=== PATIENT | female | born 1985 | race Caucasian/White ===

== ENCOUNTER 2018-06-02 18:35 | Emergency (ER) | payer MEDICAID, SELFPAY ==
[2018-06-02 18:47] VITALS: BP 123/76; PULSE 92; RESP 18; TEMP 36.8; O2SAT 99
--- NOTE | 2018-06-02 19:03 | W.ED.GENAD ---
Discharge Plan Disposition Patient Disposition: HOME Condition: Improving Discharge Details Chief Complaint: RespSymp Clinical Impression: Bronchitis Primary Care Provider: Antonella Pepe ED Provider: Cornelio Deluna Home Meds and New Rx's Prescriptions: New benzonatate [Tessalon Perles] 100 mg capsule 100 mg PO TID PRN (Reason: cough) Qty: 14 RF: 0 azithromycin 250 mg tablet 250 mg PO DAILY 4 Days Qty: 4 RF: 0 Discharge Instructions Instructions: Acute Bronchitis (ED) Additional Instructions: May use Tessalon, as prescribed as needed for cough. Please take azithromycin as prescribed. Follow-up with regular doctor if not improving in 1 week's time. Return to the emergency department for any acute concern Medical Decision Making 32-year-old female presents with 3 weeks of persistent cough and congestion. She has had no fever, she is been tolerating liquids solids by mouth and is an otherwise healthy woman. She is afebrile and well-appearing. She does have persistent paroxysms of cough during the exam. Must consider an atypical microorganism and I will treat her with a course of azithromycin. She will be given Tessalon for improved antitussive at home. She understands return and follow-up precautions HPI General Mode of arrival: ambulatory. Date/Time Provider Initiated Documentation: 06/02/18 18:53. Limitations to Documentation: no limitations. Information obtained by: patient. History of Present Illness 32 year old F presents to the emergency department with the chief complaint of 3 weeks of persistent cough, congestion, described as mild, and is localized to the chest. Patient reports no radiation. Patient started experiencing this week(s) and it has been intermittent. No relieving factors improve symptom(s), No exacerbating factors reported . Patient notes no other symptoms.; denies nausea/vomiting, rash and shortness of breath. Patient did receive the following treatments prior to arrival, none Related Data Home Medications Medication Instructions Recorded Confirmed azithromycin 250 mg PO DAILY 4 Days #4 tab 06/02/18 benzonatate [Tessalon Perles] 100 mg PO TID PRN #14 cap 06/02/18 Previous Rx's Medication Instructions Recorded azithromycin 250 mg PO DAILY 4 Days #4 tab 06/02/18 benzonatate [Tessalon Perles] 100 mg PO TID PRN #14 cap 06/02/18 Allergies Allergy/AdvReac Type Severity Reaction Status Date / Time No Known Allergies Allergy Unverified 06/02/18 18:49 General Stated Complaint: RespSymp NILESH: 3 Review of Systems Review of Systems 6 systems reviewed and otherwise negative [facility] Medical History Anxiety Surgical History section Ligation of fallopian tube Family History Mother No problems noted. Father No problems noted. Sister No problems noted. Brother No problems noted. Grandfather Neoplasm Great Grandfather Neoplasm Grandmother Diabetes Social History Smoking/Tobacco Use Status: Never Exam Narrative Exam Narrative: GEN: awake, alert, oriented 3. Pleasant, well groomed, interactive. HEAD: Normocephalic, atraumatic ENT: Mucous membranes moist, oropharynx unremarkable, External ear exam unremarkable EYES: PERRL, EOMI NECK: Full ROM, no HYUN, no menigismus CHEST/RESP: Nontender, clear to auscultation bilateral, no wheeze/rhonchi/rales. Paroxysms of cough CARDIOVASCULAR: RRR, no murmur, rub kiya. 2+ Rad pulse bilateral ABDOMEN: Soft, nontender, no mass. +Bowel sounds EXT: Full ROM, no edema, no rash Neuro: Grossly normal neurologic exam, conversant, interactive. Psych: Speech fluent, thoughts congruent, affect normal Course Vital Signs Temperature 36.8 C 06/02/18 18:47 Pulse 92 H 06/02/18 18:47 Respiratory Rate 18 06/02/18 18:47 Blood Pressure 123/76 06/02/18 18:47 Pulse Oximetry 99 06/02/18 18:47 Temperature 36.8 C 06/02/18 18:47 Temperature Source Temporal Artery Scan 06/02/18 18:47 Pulse 92 H 06/02/18 18:47 Respiratory Rate 18 06/02/18 18:47 Respiratory Effort 06/02/18 18:50 Blood Pressure 123/76 06/02/18 18:47 Pulse Oximetry 99 06/02/18 18:47 Oxygen Delivery Method Room Air 06/02/18 18:47 Oxygen Flow Rate 0 06/02/18 18:47 Pain Level 0 06/02/18 18:47
--- NOTE | 2018-06-02 19:06 | ED.GENADUL_ITS ---
Discharge Plan Disposition Patient Disposition: HOME Condition: Improving Discharge Details Chief Complaint: RespSymp Clinical Impression: Bronchitis Primary Care Provider: Antonella Pepe ED Provider: Cornelio Deluna Home Meds and New Rx's Prescriptions: New benzonatate [Tessalon Perles] 100 mg capsule 100 mg PO TID PRN (Reason: cough) Qty: 14 RF: 0 azithromycin 250 mg tablet 250 mg PO DAILY 4 Days Qty: 4 RF: 0 Discharge Instructions Instructions: Acute Bronchitis (ED) Additional Instructions: May use Tessalon, as prescribed as needed for cough. Please take azithromycin as prescribed. Follow-up with regular doctor if not improving in 1 week's time. Return to the emergency department for any acute concern Medical Decision Making 32-year-old female presents with 3 weeks of persistent cough and congestion. She has had no fever, she is been tolerating liquids solids by mouth and is an otherwise healthy woman. She is afebrile and well-appearing. She does have persistent paroxysms of cough during the exam. Must consider an atypical microorganism and I will treat her with a course of azithromycin. She will be given Tessalon for improved antitussive at home. She understands return and follow-up precautions HPI General Mode of arrival: ambulatory . Date/Time Provider Initiated Documentation: 06/02/18 18:53 . Limitations to Documentation: no limitations . Information obtained by: patient . History of Present Illness 32 year old F presents to the emergency department with the chief complaint of 3 weeks of persistent cough, congestion, described as mild, and is localized to the chest. Patient reports no radiation. Patient started experiencing this week(s) and it has been intermittent. No relieving factors improve symptom(s), No exacerbating factors reported . Patient notes no other symptoms.; denies nausea/vomiting, rash and shortness of breath. Patient did receive the following treatments prior to arrival, none Related Data Home Medications Medication Instructions Recorded Confirmed azithromycin 250 mg PO DAILY 4 Days #4 tab 06/02/18 benzonatate [Tessalon Perles] 100 mg PO TID PRN #14 cap 06/02/18 Previous Rx's Medication Instructions Recorded azithromycin 250 mg PO DAILY 4 Days #4 tab 06/02/18 benzonatate [Tessalon Perles] 100 mg PO TID PRN #14 cap 06/02/18 Allergies Allergy/AdvReac Type Severity Reaction Status Date / Time No Known Allergies Allergy Unverified 06/02/18 18:49 General Stated Complaint: RespSymp NILESH: 3 Review of Systems Review of Systems 6 systems reviewed and otherwise negative [facility] Medical History Anxiety Surgical History section Ligation of fallopian tube Family History Mother No problems noted. Father No problems noted. Sister No problems noted. Brother No problems noted. Grandfather Neoplasm Great Grandfather Neoplasm Grandmother Diabetes Social History Smoking/Tobacco Use Status: Never Exam Narrative Exam Narrative: GEN: awake, alert, oriented 3. Pleasant, well groomed, interactive. HEAD: Normocephalic, atraumatic ENT: Mucous membranes moist, oropharynx unremarkable, External ear exam unremarkable EYES: PERRL, EOMI NECK: Full ROM, no HYUN, no menigismus CHEST/RESP: Nontender, clear to auscultation bilateral, no wheeze/rhonchi/rales. Paroxysms of cough CARDIOVASCULAR: RRR, no murmur, rub kiya. 2+ Rad pulse bilateral ABDOMEN: Soft, nontender, no mass. +Bowel sounds EXT: Full ROM, no edema, no rash Neuro: Grossly normal neurologic exam, conversant, interactive. Psych: Speech fluent, thoughts congruent, affect normal Course Vital Signs Temperature 36.8 C 06/02/18 18:47 Pulse 92 H 06/02/18 18:47 Respiratory Rate 18 06/02/18 18:47 Blood Pressure 123/76 06/02/18 18:47 Pulse Oximetry 99 06/02/18 18:47 Temperature 36.8 C 06/02/18 18:47 Temperature Source Temporal Artery Scan 06/02/18 18:47 Pulse 92 H 06/02/18 18:47 Respiratory Rate 18 06/02/18 18:47 Respiratory Effort 06/02/18 18:50 Blood Pressure 123/76 06/02/18 18:47 Pulse Oximetry 99 06/02/18 18:47 Oxygen Delivery Method Room Air 06/02/18 18:47 Oxygen Flow Rate 0 06/02/18 18:47 Pain Level 0 06/02/18 18:47
[2018-06-02] MEDS: Azithromycin 250 MG TAB 500 MG PO (19:19)
[2018-06-02] MEDS: Benzonatate 100 MG CAP 300 MG PO (19:19)
== END 2018-06-02 19:15 | disposition home or self-care (01) ==
PROVIDERS: Emergency Provider Emergency Medicine; PCP Nurse Practitioner Family
DX: J20.9 Acute bronchitis, unspecified (principal)
CPT/HCPCS: 99283

== ENCOUNTER 2018-07-02 09:35 | Outpatient (REF) | payer MEDICAID, SELFPAY ==
--- NOTE | 2018-07-02 08:45 | PAPFT_PTH ---
PATIENT: Suresh Leon LOC: [facility] U#:[id number] AGE/SX: 32/F ROOM: RE07/02/[address]: Antonella Pepe APRN : 1985 BED: DIS: 07/02/2018 SPEC #: [id number] RECD: 07/02/18 12:38 STATUS: [place] #: [id number] CARLOS: 07/02/18 08:[address]: Antonella Pepe DEPT: [facility] Cytology RECD BY: Irene Mar Tissues: 1 - CX/ENDOCX FOR PAP SMEARS Procedures: PAP THIN PREP/UVM Screening HPV DNA PROBE Comments: [id number]
== END 2018-07-02 09:55 ==
LOC: LBN 09:35
PROVIDERS: PCP Nurse Practitioner Family; Visit Provider Nurse Practitioner Family
DX: Z12.4 Encounter for screening for malignant neoplasm of cervix (principal); Z11.51 Encounter for screening for human papillomavirus (HPV)
CPT/HCPCS: 88142; 87624

== ENCOUNTER 2018-07-30 07:50 | Outpatient (CLI) | payer MEDICAID, SELFPAY ==
[2018-07-30 09:29] LABS: Cholesterol 173 mg/dL (50-200); Glucose 90 mg/dL (70-100); HDL Cholesterol 62 mg/dL (40-60); LDL CHOLESTEROL 91 mg/dL (<100); TSH (W/Ref FT4) 1.15 uIU/mL (0.358-3.74); Triglyceride 96 mg/dL (30-150)
== END 2018-07-30 08:10 ==
PROVIDERS: PCP Nurse Practitioner Family; Visit Provider Nurse Practitioner Family
DX: N92.0 Excessive and frequent menstruation with regular cycle (principal); Z13.220 Encounter for screening for lipoid disorders; Z13.1 Encounter for screening for diabetes mellitus
CPT/HCPCS: 36415; 80061; 82947; 83721; 87389; 84443

== ENCOUNTER 2020-05-05 04:14 | Outpatient (CLI) | payer MEDICAID, SELFPAY ==
--- NOTE | 2020-05-05 06:45 | DI.RAD_ITS ---
EXAM: XR WRIST LT COMPLETE CLINICAL HISTORY: evaluate possible cyst or bony abnl,LT WRIST PAIN,M25.532,[id number].PERSONAL. TECHNIQUE: 2D digital imaging was performed. COMPARISON: No exams were available for comparison FINDINGS: BONES: No acute fracture is present. No bony destructive lesion is seen. A small subchondral cyst is noted in the trapezium. JOINTS: The carpal bones are normally aligned. There are no significant degenerative changes. SOFT TISSUE: Normal. No mass is visible. There is no soft tissue calcification. IMPRESSION: Unremarkable radiographs of the left wrist. DATA REPOSITORY: RADIATION DOSE DELIVERED:
== END 2020-05-05 04:34 ==
PROVIDERS: PCP Student in an Organized Health Care Education/Training Program; Visit Provider Student in an Organized Health Care Education/Training Program
DX: M25.532 Pain in left wrist (principal); Z87.39 Personal history of other diseases of the musculoskeletal system and connective tissue
CPT/HCPCS: 73110

== ENCOUNTER 2020-06-13 16:03 | Emergency (ER) | payer MEDICAID, SELFPAY ==
[2020-06-13 16:06] VITALS: BP 130/73; PULSE 92; RESP 18; TEMP 37.2; O2SAT 99
--- NOTE | 2020-06-13 16:50 | ED.GENADUL_ITS ---
Discharge Plan Disposition Patient Disposition: HOME Condition: Serious Discharge Details Clinical Impression: Dizziness, Spasm Primary Care Provider: Delmi Barr ED Provider: Ming Pruett Home Meds and New Rx's Prescriptions: Continued fluticasone propionate 50 mcg/actuation spray,suspension 2 spray FAUSTO DAILY Qty: 16 RF: 0 CBD 25 mg capsule See Rx Instructions .ROUTE .QD RF: 0 norgestimate-ethinyl estradiol [Stacey] 0.25-35 mg-mcg Tablet 1 tab PO DAILY RF: 0 Discharge Instructions Instructions: Dizziness (ED) Additional Instructions: Please monitor for symptoms closely. Avoid activities that reproduce symptoms - no pressure on your back or chiropractic manipulation of the back. Please contact your primary care physician to arrange follow-up. Be sure to discuss your symptoms with orthopedics. Return to the ER for any worsening or new concerning symptoms. Referrals: Delmi Barr DO [Primary Care Provider] - Lorenzo Rao MD [ [facility]] - Medical Decision Making 34-year-old female here with sudden onset of lightheadedness while she was lying on the ground and left arm tremor with tingling sensation after young daughter was attempting to crack her back while walking on it. Episode was brief and now resolved. Patient is hemodynamically stable. Patient is neurologically intact. Symptoms completely resolved after minutes. Patient was observed in the emergency department for period of time during which she performed jumping jacks and had regular use of the left arm. Suspect nerve root irritation. Patient does have a history of carpal tunnel peripheral neuropathy and does have a local area of numbness chronically left thoracic paraspinal. I recommended she monitor for recurrent symptoms, refrain from manipulation of the spine, and should discuss this episode with her treating orthopedic surgeon. She was encouraged to return immediately should she have any worsening or new concerning symptoms. HPI General Mode of arrival: EMS . Date/Time Provider Initiated Documentation: 06/13/20 16:24 . Limitations to Documentation: no limitations . Information obtained by: patient . HPI Narrative: 34-year-old female with carpal tunnel syndrome left upper extremity, otherwise healthy, presents with chief complaint of left arm tremor. Patient notes that she lied down on the floor and felt somewhat dizzy, presyncopal, and then to her 5-year-old child was walking on her back and she immediately experienced a tingling discomfort in her left arm, she sat up and experienced shaking of the arm she attempted to reach for her phone. Symptoms were severe with no modifiers. Symptoms resolved spontaneously after minutes. Patient denies associated pressure on her neck, headache or neck discomfort. She has no sustained symptoms at this time. No tingling or numbness. No weakness. No chest pain or shortness of breath. Patient does note that she chronically has an area left paraspinal mid thoracic area that is numb. No change in this area of numbness. Related Data Home Medications Medication Instructions Recorded Confirmed fluticasone propionate 50 2 spray FAUSTO DAILY #16 gm 07/28/19 06/13/20 mcg/actuation nasal spray,suspension CBD See Rx Instructions .ROUTE .QD 03/17/20 06/13/20 norgestimate-ethinyl estradiol 1 tab PO DAILY 06/13/20 06/13/20 [Stacey] Previous Rx's Medication Instructions Recorded fluticasone propionate 50 2 spray FAUSTO DAILY #16 gm 07/28/19 mcg/actuation nasal spray,suspension Allergies Allergy/AdvReac Type Severity Reaction Status Date / Time No Known Allergies Allergy Verified 06/13/20 16:15 General Stated Complaint: GenMedical NILESH: 3 Review of Systems All systems reviewed & are unremarkable except as noted in HPI and below Constitutional Constitutional: Denies fever(s) ENT Ears, Nose, Mouth, and Throat: Denies neck pain Cardiovascular Cardiovascular: Denies chest pain, Denies syncope, Denies rapid heart rate, Reports lightheadedness (See HPI), Denies palpitations, Denies dyspnea and Denies slow heart rate Respiratory Respiratory: Denies dyspnea Gastrointestinal Gastrointestinal: Denies abdominal pain, Denies nausea and Denies vomiting Musculoskeletal Musculoskeletal: Denies neck pain Integumentary/Breasts Skin/Breast: Denies rash Neurologic Neurologic: Reports as per HPI and Denies syncope Endocrine Endocrine: Denies palpitations [facility] Medical History Abnormal menses Acute notable nipple pain associated pre-menses in March 2020; Spotting in between menses Mar/Apr making for near 4 week period. Anxiety Family history of diabetes mellitus (DM) Fatigue History of ganglion cyst Left wrist, @ radius per pt report. Resolved with use of splint, years ago. HSV (herpes simplex virus) infection Left shoulder pain [facility] Referral: Appreciate evaluation of left shoulder pain .. x 1 month, getting worse rather than better. Very specific motion brings on severe pain; otherwise, almost WNL. Possible tear, tendonitis? Bursa invol vement? Appreciate ID and recomm for Ortho, PRN. Thank you. Left wrist pain Presume ganglion cyst returned (had responded to wrist splint years ago). 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 Ligation of fallopian tube Family History Mother No problems noted. Father No problems noted. Sister No problems noted. Brother No problems noted. Grandfather Neoplasm Colon CA Great Grandfather Neoplasm Colon CA Grandmother Diabetes Social History Smoking/Tobacco Use Status: Never Smoking risk assessment performed?: Yes Alcohol Intake: current Alcohol Intake frequency: holidays/special occasions only Drug use: Never Substance use type: does not use Household members: spouse, children and other Details: Ralph Michaud 6yo, Bria 4yo. 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 Pets and animals: Yes Pets and animals: dog(s) Sexually active: Yes Current gender identity: female What type of physical activity do you participate in: regular exercise Duration: 45-60 minutes/day Frequency: 5-6 times per week Seatbelt use: always Helmet use: Yes Drive intox or ride w/intox river driver: No Do you feel safe at home: Yes Do you feel safe in your relationship?: Yes Exam Const General: cooperative and no acute distress HENMT Head: atraumatic Mouth: moist mucous membranes Eyes Conjunctivae: normal conjunctivae EOM: EOM intact bilaterally Neck Neck: trachea midline and supple Resp Auscultation: clear to auscultation bilaterally, no rales, no rhonchi and no wheezes Cardio Jugular venous pressure: no JVD Rate: regular rate and not tachycardic Rhythm: regular rhythm GI Palpation: soft, not firm, no guarding, no masses, not rigid and nontender Back/Spine/Pelvis Back: No erythema and No warmth Cervical Spine: No cervical spinal tenderness Thoracic/Lumbar Spine: No thoracic spinal tenderness and No lumbar spinal tend erness Other: Left paraspinal thoracic focal small localized area of paresthesia Skin General skin exam: no rashes or lesions noted Neuro General: patient alert, patient awake, patient oriented x3 and tone normal Cranial Nerves: CN's II-XI intact bilaterally Cognition: normal cognition Speech: speech normal Gait: normal gait Motor: strength 5/5 throughout Sensory Exam: no sensory deficits noted Coordination: [id number] test normal Extrem General: no calf tenderness and no edema Psych Appearance: grossly normal Mental Status: mental status grossly normal Speech and Movement: speech and movement normal Course Vital Signs Vital signs: Vital Signs Temperature 37.2 C 06/13/20 16:06 Pulse 92 H 06/13/20 16:06 Respiratory Rate 18 06/13/20 16:06 Blood Pressure 130/73 06/13/20 16:06 Pulse Oximetry 99 06/13/20 16:06 Temperature 37.2 C 06/13/20 16:06 Temperature Source Temporal Artery Scan 06/13/20 16:06 Pulse 92 H 06/13/20 16:06 Respiratory Rate 18 06/13/20 16:06 Respiratory Effort Non-Labored 06/13/20 16:30 Respiratory Depth Normal 06/13/20 16:30 Blood Pressure 130/73 06/13/20 16:06 Blood Pressure Position Sitting 06/13/20 16:06 Pulse Oximetry 99 06/13/20 16:06 Oxygen Delivery Method Room Air 06/13/20 16:06 Oxygen Flow Rate 0 06/13/20 16:06 Pain Level 0 06/13/20 16:06
== END 2020-06-13 17:05 | disposition home or self-care (01) ==
PROVIDERS: Emergency Provider Student in an Organized Health Care Education/Training Program; PCP Student in an Organized Health Care Education/Training Program
DX: R25.1 Tremor, unspecified (principal); M62.838 Other muscle spasm; R42 Dizziness and giddiness; X50.9XXA Other and unspecified overexertion or strenuous movements or postures, initial encounter
CPT/HCPCS: 99283

== ENCOUNTER 2020-06-22 03:39 | Outpatient (CLI) | payer MEDICAID, SELFPAY ==
--- NOTE | 2020-06-22 07:00 | DI.MRI_ITS ---
EXAM: MR UPPER JOINT LT WO CLINICAL HISTORY: LT WRIST PAIN, M25.532. TECHNIQUE: Multiplanar multisequence MRI was performed. COMPARISON: Priors available for comparison. FINDINGS: BONES: There is no fracture or contusion pattern. Mild cystic changes are seen in the lunate. No joe dence of lunate malacia. JOINTS: The radiocarpal joint is unremarkable. The carpal joints are unremarkable. TENDONS: Flexors: Unremarkable. Extensors: There is mild hyperintense signal seen in the extensor carpi ulnaris tendon at the level o f the ulnar styloid process with mild surrounding edema. Extensor tendons are otherwise unremarkable . MUSCLES: Unremarkable. MEDIAN NERVE: Unremarkable on this noncontrast examination. ULNAR NERVE: Unremarkable on this noncontrast examination. SOFT TISSUES: There is a 0.7 cc by 0.5 AP by 0.8 transverse cm cyst arising from the pisotriquetral j oint. There is a similar cyst arising from the articulation of the scaphoid and the trapezium measur ing 0.7 transverse by 0.8 cc by 0.6 AP cm. LIGAMENTS: Unremarkable. TRIANGULAR FIBROCARTILAGE: Unremarkable. OTHER: IMPRESSION: 1. Ganglion cysts arising from both the pisotriquetral joint in the articulation between the scaphoid and the trapezium. 2. Mild hyperintense signal seen in the extensor carpi ulnaris tendon with surrounding edema suggesti ng tendinosis. No evidence of a tendon tear. 3. Mild cystic change seen in the lunate. DATA REPOSITORY:
== END 2020-06-22 03:59 ==
PROVIDERS: PCP Student in an Organized Health Care Education/Training Program; Visit Provider Student in an Organized Health Care Education/Training Program
DX: M67.432 Ganglion, left wrist (principal); M25.532 Pain in left wrist
CPT/HCPCS: 73221

== ENCOUNTER 2020-08-14 03:08 | Outpatient (CLI) | payer MEDICAID, SELFPAY ==
[2020-08-14 09:37] LABS: ALT 22 U/L (14-59); AST 16 U/L (15-37); Albumin 3.5 g/dL (3.4-5.0); Alkaline Phosphatase 39 U/L (46-116); Anion Gap 9.9 mmol/L (3-11); BUN 13 mg/dL (7-18); Bilirubin, Total 0.7 mg/dL (0.2-1.0); CO2 27.1 mmol/L (21.0-32.0); CREATININE 0.7 mg/dL (0.55-1.02); Calcium 8.6 mg/dL (8.5-10.1); Calculated LDL 90 mg/dL (<100); Chloride 103 mmol/L (98-107); Cholesterol 183 mg/dL (<200); Glucose 94 mg/dL (74-106); HDL Cholesterol 65 mg/dL (40-60); Magnesium 1.8 mg/dL (1.8-2.4); Sodium 140 mmol/L (136-145); Total Protein 7.1 g/dL (6.4-8.2); Triglyceride 140 mg/dL (<150)
== END 2020-08-14 03:09 | disposition home or self-care (01) ==
PROVIDERS: PCP Student in an Organized Health Care Education/Training Program; Visit Provider Student in an Organized Health Care Education/Training Program
DX: E86.0 Dehydration (principal); Z13.220 Encounter for screening for lipoid disorders; Z83.3 Family history of diabetes mellitus
CPT/HCPCS: 36415; 80053; 80061; 83735

== ENCOUNTER 2020-10-17 10:45 | Emergency (ER) | payer MEDICAID, SELFPAY ==
[2020-10-17] VITALS (24 sets, daily range): BP systolic 101–142; BP diastolic 66–87; PULSE 74–99; RESP 13–22; TEMP 36.8; O2SAT 96–100
--- NOTE | 2020-10-17 10:45 | RT.EKG_ITS ---
APPROVED REPORT Exam: Resting ECG Reason for Exam: syncope Patient Location: E HR:82 bpm ECG Measurements Heart Rate 82 AXIS WV 150 P 66 QRSd 91 QRS 71 QT 373 T 35 QTc 435 Conclusion Sinus rhythm...normal P axis, V-rate 60- 99 Physician: No stemi, no significant st elevation or depression
--- NOTE | 2020-10-17 11:14 | ED.GENADUL_ITS ---
Discharge Plan Disposition Patient Disposition: HOME Condition: Good Discharge Details Clinical Impression: Pre-syncope Primary Care Provider: Delmi Barr ED Provider: Irene Eugene Home Meds and New Rx's Prescriptions: No Action CBD 25 mg capsule See Rx Instructions .ROUTE .QD RF: 0 norgestimate-ethinyl estradiol [Stacey] 0.25-35 mg-mcg Tablet 1 tab PO DAILY RF: 0 Discharge Instructions Instructions: Near Syncope (ED) Additional Instructions: Given set up with a Holter monitor, you will wear this for 2 days and the help desk team leader will read or interpret the results, you should follow-up with your primary care physician regarding these findings Please return should you develop new or worsening complaints Recheck with your primary care physician next week Medical Decision Making D-dimer negative, alert and oriented, nonfocal neurological exam, ambulatory with steady gait, negative orthostatics, EKG without acute pathology or QTC prolongation, electrolytes within normal limits Patient observed for 2 hours, no obvious dysrhythmia, no chest pain or shortness of breath Telemetry monitoring throughout encounter Holter monitor initiated, return precautions discussed Carboxyhemoglobin within normal limits Feels comfortable discharge home at this time Return cautions discussed and patient says understanding, only close outpatient follow-up with primary physician Discharge home condition, alert, oriented, of decisional capacity with nonfocal pain Differential Diagnosis Differential Diagnosis: Electrolyte abnormality, dysrhythmia, pulmonary embolism, anxiety Medical Records Medical records reviewed: Yes I reviewed the patient's medical records. Lab Data Lab results reviewed: Yes I reviewed the patient's lab results. HPI General Mode of arrival: ambulatory . Date/Time Provider Initiated Documentation: 10/17/20 10:56 . Limitations to Documentation: no limitations . Information obtained by: patient . HPI Narrative: This very pleasant 35-year-old female presents with report of intermittent episodes of presyncope. She states that today she was at her shop when she developed some shortness of breath followed by nausea, lightheadedness, and tunnel vision. She states that she felt like she might pass out but it resolved for several minutes. She drove her daughter home and felt mildly improved but then her symptoms returned which is why she presents to the emergency room. She states this is her third episode in the past 3 months. She denies any known exacerbating or alleviating factors. She states with 2 episodes of occurred in her home and resolved on her own. She does state she was evaluated for her first episode in the emergency room. She denies any associated palpitations. She has not had an episode of syncope today. She denies any current shortness of breath or chest pain. She has a known murmur but no history of dysrhythmia per patient. She has not worn a Holter monitor Related Data Home Medications Medication Instructions Recorded Confirmed CBD See Rx Instructions .ROUTE .QD 03/17/20 10/17/20 norgestimate-ethinyl estradiol 1 tab PO DAILY 06/13/20 10/17/20 [Stacey] Allergies Allergy/AdvReac Type Severity Reaction Status Date / Time No Known Allergies Allergy Verified 08/18/20 08:14 General Stated Complaint: Dizzy/Sync NILESH: 2 Review of Systems Narrative: Review of systems negative x7 aside from where indicated any PFSH Medical History (Updated 10/17/20 @ 13:00 by PENNY Liriano) Abnormal menses Acute notable nipple pain associated pre-menses in March 2020; Spotting in between menses Mar/Apr making for near 4 week period. Anxiety Bilateral carpal tunnel syndrome Family history of diabetes mellitus (DM) Fatigue History of ganglion cyst Left wrist, @ radius per pt report. Resolved with use of splint, years ago. HSV (herpes simplex virus) infection Hx of pilonidal cyst (04/22/17) Left shoulder pain [facility] Referral: Appreciate evaluation of left shoulder pain .. x 1 month, getting worse rather than better. Very specific motion brings on severe pain; otherwise, almost WNL. Possible tear, tendonitis? Bursa involvement? Appreciate ID and recomm for Ortho, PRN. Thank you. Left wrist pain Presume ganglion cyst returned (had responded to wrist splint years ago). Nipple pain Numbness and tingling sensation of skin patch of skin w/o sensation, numb! Est @ T4-T5, paraspinal rectangular region .. 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 Ligation of fallopian tube Family History Mother No problems noted. Father No problems noted. Sister No problems noted. Brother No problems noted. Grandfather Neoplasm Colon CA Great Grandfather Neoplasm Colon CA Grandmother Diabetes Social History Smoking/Tobacco Use Status: Never Smoking risk assessment performed?: Yes Alcohol Intake: current Alcohol Intake frequency: holidays/special occasions only Drug use: Never Substance use type: does not use Household members: spouse, children and other Details: Ralph Michaud 6yo, Bria 4yo. 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 Do you feel safe at home: Yes Do you feel safe in your relationship?: Yes Exam Const General: cooperative Orientation: alert and oriented x3 Eyes Pupils: PERRL Resp Effort & Inspection: normal respiratory effort Auscultation: clear to auscultation bilaterally Cardio Rate: regular rate Rhythm: regular rhythm GI Inspection: normal to inspection Other: Nontender abdominal exam Skin General skin exam: no rashes or lesions noted Neuro General: patient alert, patient oriented x3 and CN's II-XI intact bilaterally Cranial Nerves: PERRL Cognition: normal cognition Speech: speech normal Gait: normal gait Sensory Exam: no sensory deficits noted Extrem Other: No calf tenderness or swelling appreciated Course Vital Signs Vital signs: Vital Signs Temperature 36.8 C 10/17/20 10:51 Pulse 99 H 10/17/20 10:51 Respiratory Rate 22 10/17/20 10:51 Blood Pressure 142/83 H 10/17/20 10:51 Pulse Oximetry 100 10/17/20 10:51 Temperature 36.8 C 10/17/20 10:51 Temperature Source Skin 10/17/20 10:51 Pulse 99 H 10/17/20 10:51 Respiratory Rate 22 10/17/20 10:51 Respiratory Effort 10/17/20 10:58 Blood Pressure 142/83 H 10/17/20 10:51 Blood Pressure Position Sitting 10/17/20 10:51 Pulse Oximetry 100 10/17/20 10:51 Oxygen Delivery Method Nasal Cannula 10/17/20 10:58 Oxygen Flow Rate 2 10/17/20 10:58
[2020-10-17] MEDS: Normal Saline 1,000 ML 1000 ML IV (11:25)
[2020-10-17] MEDS: LORazepam 2 MG/ML VIAL 0.5 MG IVP (11:26)
[2020-10-17 11:31] LABS: Abs Immature Grans 0.02 10^3/uL (0.0-0.06); Absolute Basophil Count 0.02 10^3/uL (0.0-0.2); Absolute Eosinophil Count 0.07 10^3/uL (0.0-0.7); Absolute Lymphocyte Count 1.43 10^3/uL (1.2-3.4); Absolute Monocyte Count 0.23 10^3/uL (0.1-0.8); Absolute Neutrophil Count 2.91 10^3/uL (1.2-6.7); Basophils % 0.4; Eosinophils % 1.5; HCT 37.9 % (36.0-46.0); HGB 12.5 g/dL (11.2-15.7); Immature Grans % 0.4; Lymphocytes % 30.6; MCH 27.4 pg (27.0-33.0); MCV 82.9 fL (80-95); MPV 8.6 fL (8.0-11.0); Monocytes % 4.9; Neutrophils % 62.2; Nucleated RBC 0 %; Platelet Count 260 10^3/uL (130-400); RBC 4.57 10^6/uL (3.93-5.22); RDW 12.3 % (11.7-14.6); RDW-SD 37.4 fL; WBC 4.68 10^3/uL (4.4-10.8)
[2020-10-17 11:55] LABS: ALT 34 U/L (14-59); AST 28 U/L (15-37); Alkaline Phosphatase 50 U/L (46-116); Anion Gap 9.1 mmol/L (3-11); BUN 11 mg/dL (7-18); CO2 27.9 mmol/L (21.0-32.0); CREATININE 0.8 mg/dL (0.55-1.02); Calcium 9.1 mg/dL (8.5-10.1); Chloride 104 mmol/L (98-107); Glucose 107 mg/dL (74-106); Magnesium 1.9 mg/dL (1.8-2.4); Potassium 3.4 mmol/L (3.5-5.1); Sodium 141 mmol/L (136-145); TSH 0.97 uIU/mL (0.36-3.74); Total Protein 7.9 g/dL (6.4-8.2)
[2020-10-17 11:57] LABS: Troponin I < 0.05 ng/mL (<0.06)
[2020-10-17 12:02] LABS: D-Dimer 178 ng/mlFEU (<500)
[2020-10-17 12:34] LABS: Bilirubin Negative (Negative); Blood Negative (Negative); Clarity Clear (Clear); Glucose Negative (Negative); Ketones Negative (Negative); Leukocyte Esterase Negative (Negative); Nitrite Negative (Negative); Specific Gravity 1.015 (1.005-1.025); Urobilinogen 0.2 EU/dL (Up TO 0.2)
--- NOTE | 2020-10-17 12:44 | DI.RAD_ITS ---
Exam(s) XR CHEST 2V PA LATERAL EXAM: XR CHEST 2V PA LATERAL CLINICAL HISTORY: shortness of breath TECHNIQUE: 2D digital imaging was performed. COMPARISON: No exams were available for comparison FINDINGS: MEDIASTINUM: Normal. HEART: Normal. PULMONARY VASCULATURE: Normal. LUNGS: Clear. PLEURAL SPACE: No pleural effusion or pneumothorax. BONE:Normal. OTHER FINDINGS:Normal. IMPRESSION: No acute pulmonary findings. DATA REPOSITORY: RADIATION DOSE DELIVERED:
== END 2020-10-17 13:29 | disposition home or self-care (01) ==
PROVIDERS: Emergency Provider Physician Assistant; PCP Student in an Organized Health Care Education/Training Program
DX: R55 Syncope and collapse (principal); R11.0 Nausea; R06.02 Shortness of breath
CPT/HCPCS: 36415; 36416; 80053; 81025; 82375; 82962; 93005; 96361; 96374; 99285; 71046; 81003; 83735; 84443; 84484; 85025; 85379; 93010; J2060

== ENCOUNTER 2020-10-17 12:56 | Outpatient (RCR) | payer MEDICAID, SELFPAY ==
--- NOTE | 2020-10-17 13:00 | HOLTER_ITS ---
APPROVED REPORT Conclusion This is a 48-hour monitor ordered for indication of presyncope. The patient was in normal sinus rhythm for the majority the recording with an average heart rate of 8 5 bpm. There was a single episode of NSVT lasting 4 beats. There were rare PACs and rare PVCs. There were no episodes of atrial fibrillation, no pauses greater than 3 seconds and no evidence of hi gh degree heart block. There were 2 patient reported events neither of which were associated with arrhythmia.
== END 2020-10-30 23:59 | disposition home or self-care (01) ==
LOC: RT 12:56
PROVIDERS: PCP Student in an Organized Health Care Education/Training Program; Visit Provider Physician Assistant
DX: R55 Syncope and collapse (principal); I47.2 Ventricular tachycardia
CPT/HCPCS: 93225

== ENCOUNTER 2021-02-07 18:12 | Emergency (ER) | payer MEDICAID, SELFPAY ==
[2021-02-07 18:17] VITALS: BP 126/89; PULSE 102; RESP 15; TEMP 36.8; O2SAT 100
[2021-02-07 18:44] LABS: Bilirubin Negative (Negative); Blood Large (Negative); Clarity Clear (Clear); Glucose Negative (Negative); Ketones Negative (Negative); Leukocyte Esterase Large (Negative); Nitrite Negative (Negative); Urobilinogen 0.2 EU/dL (Up TO 0.2); pH 6.5 (5-8)
--- NOTE | 2021-02-07 18:44 | W.ED.GENAD ---
Discharge Plan Disposition Patient Disposition: HOME Condition: Stable Discharge Details Clinical Impression: UTI (urinary tract infection) Primary Care Provider: Delmi Barr ED Provider: Seferino Taylor Home Meds and New Rx's Prescriptions: New sulfamethoxazole-trimethoprim [Bactrim DS] 800-160 mg tablet 1 tab PO BID Qty: 14 RF: 0 phenazopyridine [Pyridium] 200 mg tablet 200 mg PO TID PRNQty: 6 RF: 0 Continued bupropion HCl [Wellbutrin XL] 300 mg tablet extended release 24 hr 300 mg PO QAM Qty: 90 RF: 1 lorazepam [Ativan] 0.5 mg tablet 0.5 mg PO DAILY PRN (Reason: anxiety episode/panic) Qty: 9 RF: 0 CBD 25 mg capsule See Rx Instructions .ROUTE .QD RF: 0 Discharge Instructions Instructions: Urinary Tract Infection in Women (ED) Additional Instructions: Plenty of fluids to avoid dehydration. Bactrim and Pyridium for UTI as directed. [id number] ibuprofen, Claritin-D for your bilateral ear pressure. Please watch for new or worsening symptoms and return to the ER for any concerns. Follow-up with your primary care provider and/or ENT specialist as already scheduled. Medical Decision Making 34-year-old female presents concerned that she may have a UTI. Clinically she appears well, nontoxic, no fever, abdominal pain, vomiting, CVA tenderness. No evidence of pyelonephritis. Will obtain urinalysis and test. Patient also reports ear pressure and popping occasional feeling off balance for 1 month. No clear neuro deficit. Ears bilaterally unremarkable. Question if there may be a component of eustachian tube dysfunction. Urinalysis large blood, large leuk esterase, greater than 50 white cells. Will initiate antibiotic therapy, Bactrim as well as Pyridium. Given her potential eustachian tube dysfunction, will recommend Claritin-D and ibuprofen. She will follow up with her primary care provider tomorrow and her ENT specialist as already scheduled. Strict discharge and return precautions provided. This documentation was generated using [employer] system, please disregard any oddities of phrase or misspellings. Medical Records Medical records reviewed: Yes I reviewed the patient's medical records. Lab Data Lab results reviewed: Yes I reviewed the patient's lab results. Labs: 09/08/21 18:20 Urine - Reflex from Ua Urine Culture - Pending Laboratory Tests Range/Units 02/07/21 18:20 Urine Color (Yellow) Yellow Urine Clarity (Clear) Clear Urine pH (5-8) 6.5 Ur Specific [place] (1.005-1.025) 1.010 Urine Protein (Negative) mg/dL Negative Urine Ketones (Negative) mg/dL Negative Urine Blood (Negative) Large H Urine Nitrite (Negative) Negative Urine Bilirubin (Negative) Negative Urine Urobilinogen (Up TO 0.2) EU/dL 0.2 Ur Leukocyte Esterase (Negative) Large H Urine RBC (0-2) HPF Negative Urine WBC (0-5) HPF >50 H Ur Epithelial Cells (Negative) HPF Negative Urine Crystals (Negative) HPF Negative Urine Bacteria (Negative) HPF Moderate Urine Casts (Negative) LPF Negative Urine Mucus (Negative) Negative Urine Other (Negative) Negative Ur Culture Indicated? Yes Urine Glucose (Negative) mg/dL Negative HPI General Mode of arrival: ambulatory. Date/Time Provider Initiated Documentation: 02/07/21 18:13. Limitations to Documentation: no limitations. Information obtained by: patient. HPI Narrative: This is a 35-year-old female, she denies significant past medical history, presenting for concern of UTI, dysuria, frequency that began earlier today. She denies fever, abdominal pain. She does report diffuse mild lower back achiness. Denies hematuria, vaginal bleeding or discharge. Denies nausea or vomiting. Patient states this feels very similar to her previous UTI. Patient also states that for 1 month she has been having popping in both of her ears when she swallows, bilateral pressure, and occasionally feeling off balance. She does take Zyrtec. She was scheduled to see her primary care provider tomorrow regarding her UTI and she has made a follow-up appointment with an ENT specialist for her ongoing ear pressure. Related Data Home Medications Medication Instructions Recorded Confirmed CBD See Rx Instructions .ROUTE .QD 03/17/20 02/07/21 bupropion HCl 300 mg 24 hr tablet, 300 mg PO QAM #90 tab 12/21/20 02/07/21 extended release lorazepam 0.5 mg tablet 0.5 mg PO DAILY PRN #9 tab 12/21/20 02/07/21 phenazopyridine [Pyridium] 200 mg PO TID PRN #6 tab 02/07/21 sulfamethoxazole-trimethoprim 1 tab PO BID #14 tab 02/07/21 [Bactrim DS] Previous Rx's Medication Instructions Recorded bupropion HCl 300 mg 24 hr tablet, 300 mg PO QAM #90 tab 12/21/20 extended release lorazepam 0.5 mg tablet 0.5 mg PO DAILY PRN #9 tab 12/21/20 phenazopyridine [Pyridium] 200 mg PO TID PRN #6 tab 02/07/21 sulfamethoxazole-trimethoprim 1 tab PO BID #14 tab 02/07/21 [Bactrim DS] Allergies Allergy/AdvReac Type Severity Reaction Status Date / Time No Known Allergies Allergy Verified 02/07/21 18:22 General Stated Complaint: Urinary NILESH: 3 Review of Systems Constitutional Constitutional: Denies fever(s) and Denies headache(s) Eyes Eyes: Denies change in vision ENT Ears, Nose, Mouth, and Throat: Reports otalgia, Denies headache(s) and Denies neck pain Cardiovascular Cardiovascular: Denies chest pain and Denies dyspnea Respiratory Respiratory: Denies cough and Denies dyspnea Gastrointestinal Gastrointestinal: Denies abdominal pain, Denies nausea and Denies vomiting Genitourinary Genitourinary: Reports dysuria Musculoskeletal Musculoskeletal: Reports back pain and Denies neck pain Integumentary/Breasts Skin/Breast: Denies rash Neurologic Neurologic: Denies headache(s) [facility] Medical History Abnormal menses Acute notable nipple pain associated pre-menses in March 2020; Spotting in between menses Mar/Apr making for near 4 week period. Anxiety with near-panic episodes .. Bilateral carpal tunnel syndrome Family history of diabetes mellitus (DM) Fatigue History of ganglion cyst Left wrist, @ radius per pt report. Resolved with use of splint, years ago. HSV (herpes simplex virus) infection Hx of pilonidal cyst (04/22/17) Left shoulder pain [facility] Referral: Appreciate evaluation of left shoulder pain .. x 1 month, getting worse rather than better. Very specific motion brings on severe pain; otherwise, almost WNL. Possible tear, tendonitis? Bursa involvement? Appreciate ID and recomm for Ortho, PRN. Thank you. Left wrist pain Presume ganglion cyst returned (had responded to wrist splint years ago). Nipple pain Numbness and tingling sensation of skin patch of skin w/o sensation, numb! Est @ T4-T5, paraspinal rectangular region .. 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 Ligation of fallopian tube Family History Mother No problems noted. Father No problems noted. Sister No problems noted. Brother No problems noted. Grandfather Neoplasm Colon CA Great Grandfather Neoplasm Colon CA Grandmother Diabetes Social History Smoking/Tobacco Use Status: Never Smoking risk assessment performed?: Yes Alcohol Intake: current Alcohol Intake frequency: holidays/special occasions only Drug use: Never Substance use type: does not use Household members: spouse, children and other Details: Ralph Michaud 6yo, Bria 4yo. 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 Do you feel safe at home: Yes Do you feel safe in your relationship?: Yes Exam Const General: cooperative, healthy appearing, comfortable and no acute distress Orientation: alert, awake and oriented x3 HENMT Head: normal to inspection, normocephalic and atraumatic Ears: external ears normal, TM's normal bilaterally and EAC's normal General nose exam: external nose normal Face and sinus: normal facial exam Mouth: moist mucous membranes Throat: posterior oropharynx normal Eyes General: appearance normal, both eyes and all related structures Alignment and Position: alignment normal Periorbital: periorbital findings normal Eyelids: eyelids normal Conjunctivae: conjunctivae normal Sclera: sclerae normal Cornea: corneas normal EOM: EOM intact bilaterally Direct ophthalmoscopy: normal light reflex Neck Neck: normal visual inspection, full ROM, trachea midline and supple Resp Effort & Inspection: normal respiratory effort and able to speak in complete sentences Auscultation: clear to auscultation bilaterally Cardio Rate: regular rate Rhythm: regular rhythm GI Palpation: soft, not firm, no guarding, no pulsatile masses and nontender Auscultation: normal bowel sounds Back/Spine/Pelvis Back: no CVA tenderness and No back tenderness Skin General skin exam: no rashes or lesions noted Neuro General: patient alert, patient awake, moves all extremities and no focal motor deficits Cognition: normal cognition Gait: normal gait Motor: no movement abnormalities noted and no fasciculations Sensory Exam: no sensory deficits noted Coordination: Does not sway with eyes open Psych Appearance: grossly normal Mental Status: mental status grossly normal Course Vital Signs Vital signs: Vital Signs Temperature 36.8 C 02/07/21 18:17 Pulse 102 H 02/07/21 18:17 Respiratory Rate 15 02/07/21 18:17 Blood Pressure 126/89 02/07/21 18:17 Pulse Oximetry 100 02/07/21 18:17 Temperature 36.8 C 02/07/21 18:17 Temperature Source Tympanic 02/07/21 18:17 Pulse 102 H 02/07/21 18:17 Respiratory Rate 15 02/07/21 18:17 Respiratory Effort Non-Labored 02/07/21 18:20 Blood Pressure 126/89 02/07/21 18:17 Blood Pressure Position Sitting 02/07/21 18:17 Pulse Oximetry 100 02/07/21 18:17 Oxygen Delivery Method Room Air 02/07/21 18:17 Oxygen Flow Rate 0 02/07/21 18:17
[2021-02-07] MEDS: Sulfameth/Trimeth DS TAB 1 TAB PO (19:03)
[2021-02-07] MEDS: Phenazopyridine 200 MG TAB PO (19:03)
[2021-02-07 19:04] LABS: Bacteria Moderate HPF (Negative); C & S Indicated? Yes; Casts Negative LPF (Negative); Crystals Negative HPF (Negative); Epithelial Cells Negative HPF (Negative); Mucus Negative (Negative); Other Cells Negative (Negative); RBC Negative HPF (0-2); WBC >50 HPF (0-5)
[2021-02-07 19:14] VITALS: BP 115/79; PULSE 98; RESP 18; TEMP 36.2; O2SAT 100
== END 2021-02-07 19:16 | disposition home or self-care (01) ==
PROVIDERS: Emergency Provider Physician Assistant; PCP Student in an Organized Health Care Education/Training Program
DX: N39.0 Urinary tract infection, site not specified (principal); B96.20 Unspecified Escherichia coli [E. coli] as the cause of diseases classified elsewhere; H93.8X3 Other specified disorders of ear, bilateral
CPT/HCPCS: 81025; 87077; 99283; 81003; 81015; 87086; 87186

== ENCOUNTER 2021-02-12 15:09 | Outpatient (REF) | payer MEDICAID, SELFPAY ==
[2021-02-12 20:50] LABS: Absolute Basophil Count 0.01 10^3/uL (0.0-0.2); Absolute Eosinophil Count 0.04 10^3/uL (0.0-0.7); Absolute Lymphocyte Count 1.05 10^3/uL (1.2-3.4); Absolute Neutrophil Count 3.21 10^3/uL (1.2-6.7); Basophils % 0.2; Eosinophils % 0.9; HCT 35.1 % (36.0-46.0); HGB 11.6 g/dL (11.2-15.7); Lymphocytes % 22.8; MCH 27.6 pg (27.0-33.0); MCV 83.4 fL (80-95); MPV 9.7 fL (8.0-11.0); Monocytes % 6.5; Neutrophils % 69.6; Nucleated RBC 0 %; Platelet Count 241 10^3/uL (130-400); RBC 4.21 10^6/uL (3.93-5.22); RDW 13.2 % (11.7-14.6); RDW-SD 39.5 fL; WBC 4.61 10^3/uL (4.4-10.8)
[2021-02-12 21:25] LABS: ALT 39 U/L (14-59); AST 31 U/L (15-37); Albumin 4.3 g/dL (3.4-5.0); Alkaline Phosphatase 60 U/L (46-116); Anion Gap 10.9 mmol/L (3-11); BUN 11 mg/dL (7-18); Bilirubin, Total 0.7 mg/dL (0.2-1.0); CO2 25.1 mmol/L (21.0-32.0); Calcium 8.7 mg/dL (8.5-10.1); Chloride 104 mmol/L (98-107); Glucose 91 mg/dL (74-106); Potassium 3.9 mmol/L (3.5-5.1); Sodium 140 mmol/L (136-145); Total Protein 7.4 g/dL (6.4-8.2)
== END 2021-02-12 15:10 | disposition home or self-care (01) ==
LOC: LBN 15:09
PROVIDERS: PCP Student in an Organized Health Care Education/Training Program; Visit Provider Physician Assistant
DX: N12 Tubulo-interstitial nephritis, not specified as acute or chronic (principal); N15.9 Renal tubulo-interstitial disease, unspecified
CPT/HCPCS: 80053; 85025

== ENCOUNTER 2021-05-15 14:08 | Outpatient (REF) | payer MEDICAID, SELFPAY ==
[2021-05-17 06:16] LABS: COVID-19 RT-PCR UVMMC Result Positive (Negative)
== END 2021-05-15 14:09 | disposition home or self-care (01) ==
LOC: NCHCN 14:08
PROVIDERS: PCP Student in an Organized Health Care Education/Training Program; Visit Provider Physician Assistant
DX: Z20.822 Contact with and (suspected) exposure to COVID-19 (principal)
CPT/HCPCS: U0003

== ENCOUNTER 2021-09-06 11:59 | Outpatient (REF) | payer MEDICAID, SELFPAY | END 2021-09-06 12:00 | disposition home or self-care (01) | LOC: LBN 11:59 | PROVIDERS: PCP Student in an Organized Health Care Education/Training Program; Visit Provider Nurse Practitioner | DX: R82.998 Other abnormal findings in urine (principal) | CPT/HCPCS: 87086 ==

== ENCOUNTER 2022-05-14 11:30 | Outpatient (REF) | payer MEDICAID, SELFPAY | END 2022-05-14 11:31 | disposition home or self-care (01) | LOC: LBN 11:30 | PROVIDERS: PCP Student in an Organized Health Care Education/Training Program; Visit Provider Student in an Organized Health Care Education/Training Program | DX: R30.0 Dysuria (principal) | CPT/HCPCS: 87086 ==

== ENCOUNTER 2022-09-11 03:10 | Outpatient (CLI) | payer MEDICAID, SELFPAY ==
[2022-09-11 08:19] LABS: HCT 36.7 % (36.0-46.0); HGB 12.5 g/dL (11.2-15.7); MCH 28.3 pg (27.0-33.0); MCHC 34.1 % (32.0-36.0); MCV 83 fL (80-95); MPV 8.2 fL (8.0-11.0); Platelet Count 181 10^3/uL (130-400); RBC 4.42 10^6/uL (3.93-5.22); RDW 12.4 % (11.7-14.6); RDW-SD 37.7 fL; WBC 3.49 10^3/uL (4.4-10.8)
[2022-09-11 09:08] LABS: Folate > 20.0 ng/mL (8.6-20.0)
[2022-09-11 09:13] LABS: Vitamin D 25 Total 17.6 ng/mL (30-100)
[2022-09-11 09:18] LABS: Anion Gap 9.1 mmol/L (3-11); BUN 11 mg/dL (7-18); CO2 27.9 mmol/L (21.0-32.0); CREATININE 0.8 mg/dL (0.55-1.02); Calcium 8.9 mg/dL (8.5-10.1); Calculated LDL 94 mg/dL (<100); Chloride 103 mmol/L (98-107); Cholesterol 177 mg/dL (<200); Estimated GFR 97.87 (mL/min/1.73m2); Glucose 103 mg/dL (74-106); HDL Cholesterol 71 mg/dL (40-60); Potassium 3.9 mmol/L (3.5-5.1); Sodium 140 mmol/L (136-145); TSH (W/Ref FT4) 1.16 uIU/mL (0.36-3.74); Triglyceride 62 mg/dL (<150); Vitamin B12 369 pg/mL (193-986)
== END 2022-09-11 03:11 | disposition home or self-care (01) ==
LOC: LBO 03:11
PROVIDERS: PCP Student in an Organized Health Care Education/Training Program; Referring Provider Student in an Organized Health Care Education/Training Program; Visit Provider Student in an Organized Health Care Education/Training Program
DX: R53.83 Other fatigue (principal); R79.89 Other specified abnormal findings of blood chemistry; R20.0 Anesthesia of skin; E46 Unspecified protein-calorie malnutrition; E55.9 Vitamin D deficiency, unspecified; N92.0 Excessive and frequent menstruation with regular cycle; N94.3 Premenstrual tension syndrome; Z83.3 Family history of diabetes mellitus; Z13.220 Encounter for screening for lipoid disorders
CPT/HCPCS: 36415; 80048; 80061; 82306; 85027; 82607; 82746; 84443

== ENCOUNTER 2022-12-20 01:47 | Outpatient (CLI) | payer MEDICAID, SELFPAY ==
[2022-12-20 07:20] LABS: HCT 36.1 % (36.0-46.0); HGB 12.1 g/dL (11.2-15.7); MCH 28.5 pg (27.0-33.0); MCHC 33.5 % (32.0-36.0); MCV 85 fL (80-95); MPV 8.4 fL (8.0-11.0); Platelet Count 206 10^3/uL (130-400); RBC 4.25 10^6/uL (3.93-5.22); RDW-SD 40.3 fL; WBC 4.24 10^3/uL (4.4-10.8)
[2022-12-20 08:18] LABS: ALT 38 U/L (14-59); AST 23 U/L (15-37); Albumin 3.7 g/dL (3.4-5.0); Alkaline Phosphatase 48 U/L (46-116); Anion Gap 9.5 mmol/L (3-11); BUN 12 mg/dL (7-18); Bilirubin, Total 0.6 mg/dL (0.2-1.0); CO2 25.5 mmol/L (21.0-32.0); CREATININE 0.8 mg/dL (0.55-1.02); Calcium 8.2 mg/dL (8.5-10.1); Calculated LDL 95 mg/dL (<100); Chloride 104 mmol/L (98-107); Cholesterol 180 mg/dL (<200); Estimated GFR 97.87 (mL/min/1.73m2); Glucose 100 mg/dL (74-106); HDL Cholesterol 65 mg/dL (40-60); Sodium 139 mmol/L (136-145); TSH (W/Ref FT4) 1.49 uIU/mL (0.36-3.74); Total Protein 7.1 g/dL (6.4-8.2); Triglyceride 101 mg/dL (<150)
[2022-12-20 08:32] LABS: Vitamin D 25 Total 23.5 ng/mL (30-100)
== END 2022-12-20 01:48 | disposition home or self-care (01) ==
LOC: LBO 01:47
PROVIDERS: PCP Student in an Organized Health Care Education/Training Program; Referring Provider Student in an Organized Health Care Education/Training Program; Visit Provider Student in an Organized Health Care Education/Training Program
DX: R53.83 Other fatigue (principal); R20.0 Anesthesia of skin; E55.9 Vitamin D deficiency, unspecified; F41.8 Other specified anxiety disorders; D72.9 Disorder of white blood cells, unspecified; Z86.2 Personal history of diseases of the blood and blood-forming organs and certain disorders involving the immune mechanism; Z13.220 Encounter for screening for lipoid disorders; Z83.3 Family history of diabetes mellitus; Z91.89 Other specified personal risk factors, not elsewhere classified
CPT/HCPCS: 36415; 80053; 80061; 82306; 85027; 84443

== ENCOUNTER → 2023-02-26 01:17 | Outpatient (CLI) | payer MEDICAID, SELFPAY ==
--- NOTE | 2023-02-26 08:30 | DI.MAMMO_ITS ---
Exam(s) MAMMO SCREENING EXAM: MAMMO SCREENING CLINICAL HISTORY: screening, Z12.39 TECHNIQUE: Bilateral full field digital CC and MLO mammographic images were obtained with 3D tomosyn thesis and utilizing computer aided detection (CAD). COMPARISON: This is a baseline examination. FINDINGS: Masses/Architectural Distortion: There is an area of asymmetric breast tissue in the upper right ruth st on the MLO view. Microcalcifications: No suspicious pleomorphic-type are seen. Skin Thickening/Nipple Retraction: None. IMPRESSION: 1. Asymmetric breast tissue in the upper right breast on the MLO. 2. This area should be further evaluated with a spot compression view. Limited right breast ultrasou nd may be indicated at that time. BI-RADS Category 0 - Assessment Incomplete: Need additional imaging evaluation Breast Density - Category C - Heterogeneously dense Breast density category C or D implies that the patient has dense breast tissue. Dense breast tissue is very common and is not abnormal but dense breast tissue can make it harder to find cancer on a ma mmogram. Also, dense breast tissue may increase their breast cancer risk. This information about the result of the mammogram report was provided to the patient to raise their awareness. Use this report when you speak with the patient about their risks for breast cancer, which includes their family hist ory. At that time, you may recommend for more screening tests (Ultrasound or MRI) as they might be us eful based on their risk. A negative radiographic report should not delay biopsy if a dominant or clinically suspicious mass is present. Up to ten percent of cancers are not identified on mammography. A negative report may reinforce clinical impression. Adenosis and dense breasts may obscure an underlying neoplasm. False positive reports average 6 to 10%. Patient will receive a letter notifying them of these results.
== END ==
PROVIDERS: PCP Student in an Organized Health Care Education/Training Program; Visit Provider Student in an Organized Health Care Education/Training Program
DX: Z12.31 Encounter for screening mammogram for malignant neoplasm of breast (principal)
CPT/HCPCS: 77063; 77067

== ENCOUNTER → 2023-03-04 00:31 | Outpatient (CLI) | payer MEDICAID, SELFPAY ==
--- NOTE | 2023-03-04 | DI.MAMMO_ITS ---
Exam(s) MG MAMMO SCREEN CALL BACK UNI US BREAST RT LIMITED EXAM: MG MAMMO SCREEN CALL BACK UNI CLINICAL HISTORY: ASYMMETRIC BREAST TISSUE RIGHT BREAST R92.8 ABNL MAMMO. TECHNIQUE: mediolateral oblique spot compression digital Mammography views of the right breast foll owed by Tomosynthesis and right breast ultrasound. COMPARISON: MG MG MAMMO SCREENING from 02/26/2023 US US BREAST RT LIMITED from 03/04/2023 FINDINGS: Mammography/Tomosynthesis: Masses/Architectural Distortion: None seen. Microcalcifictions: No suspicious pleomorphic-type are seen. Skin Thickening/Nipple Retraction: None. Right breast US: Echotexture: Normal appearance of the glandular tissue. Shadowing: No suspicious foci. Cyst: 2 adjacent cysts in the 1 o'clock position 1 cm from the nipple measuring 1.1 and 0.7 cm in max imal dimension. 6 millimeter cyst 12 o'clock position 1 cm from the nipple. Two adjacent tiny cysts are noted in the 9 o'clock position 2 cm from the nipple. Solid lesions: None seen. Ductal dilation: None. IMPRESSION: 1. No evidence of malignancy is noted. Incidental cysts. 2. Unless there is more urgent need, follow-up screening mammography is recommended, as per [place] [employer] guidelines. 3. The findings were discussed with the patient on the date of the examination. BI-RADS Category 2 - Benign Findings Breast Density - Category C - Heterogeneously dense A mammogram that demonstrates density of C or D indicates the patient's breast tissue is dense. Dense breast tissue is very common and is not abnormal, but dense breast tissue can make it harder to find cancer on a mammogram. Also, dense breast tissue may increase their breast cancer risk. This informa tion about the result of the mammogram report was provided to the patient to raise their awareness. U se this report when you speak with the patient about their risks for breast cancer, which includes th eir family history. At that time, you may recommend for more screening tests (Ultrasound or MRI) as t hey might be useful based on their risk. A negative radiographic report should not delay biopsy if a dominant or clinically suspicious mass is present. Up to ten percent of cancers are not identified on mammography. A negative report may reinforce clinical impression. Adenosis and dense breasts may obscure an underlying neoplasm. False positive reports average 6 to 10%. Patient will receive a letter notifying them of these results.
== END ==
PROVIDERS: PCP Student in an Organized Health Care Education/Training Program; Visit Provider Student in an Organized Health Care Education/Training Program
DX: Z12.31 Encounter for screening mammogram for malignant neoplasm of breast (principal); N63.12 Unspecified lump in the right breast, upper inner quadrant
CPT/HCPCS: 76642; 77063; 77067

== ENCOUNTER 2023-09-12 01:34 | Outpatient (CLI) | payer MEDICAID, SELFPAY ==
[2023-09-12 08:47] LABS: HGB 11.1 g/dL (11.2-15.7)
[2023-09-12 10:02] LABS: Vitamin D 25 Total 23.1 ng/mL (30-100)
[2023-09-12 10:11] LABS: ALT 28 U/L (14-59); AST 24 U/L (15-37); Albumin 3.7 g/dL (3.4-5.0); Alkaline Phosphatase 48 U/L (46-116); Anion Gap 6.5 mmol/L (3-11); BUN 7 mg/dL (7-18); Bilirubin, Total 0.9 mg/dL (0.2-1.0); CO2 26.5 mmol/L (21.0-32.0); CREATININE 0.8 mg/dL (0.55-1.02); Calcium 8.5 mg/dL (8.5-10.1); Calculated LDL 97 mg/dL (<100); Chloride 106 mmol/L (98-107); Cholesterol 182 mg/dL (<200); Estimated GFR 97.26 (mL/min/1.73m2); Glucose 106 mg/dL (74-106); HDL Cholesterol 72 mg/dL (40-60); Potassium 3.7 mmol/L (3.5-5.1); Sodium 139 mmol/L (136-145); Total Protein 6.9 g/dL (6.4-8.2); Triglyceride 65 mg/dL (<150)
[2023-09-12 10:36] LABS: TSH (W/Ref FT4) 1.16 uIU/mL (0.36-3.74)
== END 2023-09-12 01:35 | disposition home or self-care (01) ==
PROVIDERS: PCP Student in an Organized Health Care Education/Training Program; Visit Provider Student in an Organized Health Care Education/Training Program
DX: Z91.89 Other specified personal risk factors, not elsewhere classified (principal); Z83.3 Family history of diabetes mellitus; E55.9 Vitamin D deficiency, unspecified; Z13.220 Encounter for screening for lipoid disorders; F41.9 Anxiety disorder, unspecified
CPT/HCPCS: 36415; 80053; 80061; 82306; 84443; 85018

== ENCOUNTER 2024-02-04 03:01 | Outpatient (CLI) | payer MEDICAID, SELFPAY ==
[2024-02-04 07:34] LABS: HCT 36.5 % (36.0-46.0); HGB 11.7 g/dL (11.2-15.7); MCH 26.4 pg (27.0-33.0); MCHC 32.1 % (32.0-36.0); MCV 82 fL (80-95); MPV 8.5 fL (8.0-11.0); Platelet Count 222 10^3/uL (130-400); RBC 4.43 10^6/uL (3.93-5.22); RDW 14.1 % (11.7-14.6); RDW-SD 41.4 fL; WBC 4.98 10^3/uL (4.4-10.8)
[2024-02-04 08:44] LABS: Vitamin D 25 Total 31.3 ng/mL (30-100)
== END 2024-02-04 03:02 | disposition home or self-care (01) ==
PROVIDERS: PCP Student in an Organized Health Care Education/Training Program; Visit Provider Student in an Organized Health Care Education/Training Program
DX: K90.9 Intestinal malabsorption, unspecified (principal); D64.9 Anemia, unspecified
CPT/HCPCS: 36415; 82306; 85027

== ENCOUNTER 2024-03-19 00:33 | Outpatient (CLI) | payer MEDICAID, SELFPAY ==
--- OUTSIDE RECORDS SUMMARY | 2024-03-19 00:41 | XMS_ITS | Encounter Summary ---
Author Organization [facility] Address [address] [place] [address] Care Team Providers Care Hand Button Splitter Name Role Phone Unavailable Primary Care Provider Unavailabl e Encounter Details Date Type Department Care Team (Late st Contact Info) Description 09/29/2007 Results Only [facility] [place] [facility] [address] [place] [address] Erika Curtis ARNP [address] [place] [address] Social History Tobacco Use Types Packs/Day Years Used Date Smoking Tobacco: Never Assessed Sex and Gender Information Value Date Recorded Sex Assigned at Not on file Gender Identity Not on file Sexual Orientation Not on file documented as of this encounter Plan of Treatment Not on file documented as of this encounter Procedures Procedure Name Priority Date/Time Associated Diagnosis Comments CYTOPATHOLOGY Routine 09/29/2007 0:00 EDT documented in this encounter Results * CYTOPATHOLOGY (09/29/2007 0:00 EDT) Pathology Report: CYTOPATHOLOGY REPORT Reports generated via electronic interface contain original data; however they are lacking the format of the original report. Caution should be taken when reading/interpreti ng unformatted reports. Name: ? SURESH FLORES ? Accession #: ? [id number] : ? 1985 (Age: 22) ??F ?Collect Date: ? 09/29/2007 Location: ? [facility] ? Receive Date: ? 09/30/2007 Provider: ?ERIKA RIVER Copy to: ? Specimen/Source: ?ThinPrep Pap Test, Cervix/Endocervix, processed on Insight[employer]ared ThinPrep Imaging System, with manual evaluation Last Menstrual Period: ? 09/15/07 Hormonal/Contracep tive Status: ? Oral contraceptives ? SPECIMEN ADEQUACY ? Satisfactory for Evaluation - transformation zone component present GENERAL CATEGORIZATION ? Negative for Intraepithelial Lesion or Malignancy ? Document reviewed and electronically signed by: ? Rudolph Pollock, BAKARI(ASCP) ? Report Date: ??10/05/2007 07:20 End of Report [facility] 09/29/2007 09/30/2007 Erika RIVER PATHOLOGY ORDERAB LES [facility] WH[facility] [address] [place] [address] documented in this encounter Visit Diagnoses Not on filedocumented in this encounter
--- OUTSIDE RECORDS SUMMARY | 2024-03-19 00:41 | XMS_ITS | Encounter Summary ---
Author Organization [facility] Address [address] [place] [address] Care Team Providers Care Scrapper Name Role Phone Unknown, Provider Primary Care Provider [phone] Winsome Newsome CONSTRUCTION SAFETY MANAGER Unavailable [phone] Encounter Details Date Type Department Care Team (Late st Contact Info) Description 12/05/2015 Results Only [facility] [phone] Ronald Palacios MD [address] [place] [phone] Social History Tobacco Use Types Packs/Day Years Used Date Smoking Tobacco: Never Assessed Sex and Gender Information Value Date Recorded Sex Assigned at Not on file Gender Identity Not on file Sexual Orientation Not on file documented as of this encounter Plan of Treatment Not on file documented as of this encounter Procedures Procedure Name Priority Date/Time Associated Diagnosis Comments SURGICAL PATHOLOGY Routine 12/05/2015 10 :57 EDT documented in this encounter Results * SURGICAL PATHOLOGY (12/05/2015 10:57 EDT) Pathology Report: SURGICAL PATHOLOGY REPORT Reports generated via electronic interface contain original data; however they are lacking the format of the original report. Caution should be taken when reading/interpret ing unformatted reports. Name: ? SURESH GUADALUPE ? Accession #: ? [id number] ? : ? 1985 (Age: 30) ??F ? Collect Date: ? 12/05/2015 ? Location: ? [facility] ? Receive Date: ? 12/05/2015 ? Provider: RONALD PALACIOS MD Copy to: WINSOME NEWSOME CONSTRUCTION SAFETY MANAGER ? Final Pathologic Diagnosis: A. FALLOPIAN TUBE, RIGHT, TUBAL LIGATION: - ??Fallopian tube with no specific pathologic features; full cross sections identified. B. FALLOPIAN TUBE, LEFT, TUBAL LIGATION: - ??Fallopian tube with no specific pathologic features; full cross sections identified. Document reviewed and electronically signed by: NURY MIGUEL MD Report ??Date: 12/08/2015 13:21 By the signature above, the attending physician certifies that he/she has personally conducted a gross and/or microscopic examination of the described specimens and rendered or confirmed the above diagnosis. Specimen(s) Received: A. ??Portion of right fallopian tube B. ??Portion of left fallopian tube Clinical History: Desires permanent sterilization; clinical diagnosis code: ??O34.21, Z37.0, Z30.2 Gross Description: A. ?Received in formalin labelled with proper patient identification (initials R, R) and portion of right fallopian tube is a 1.8 cm in length fallopian tube segment averaging 0.7 cm in diameter. The serosa is smooth pink-pacheco. Sections show an intact wall and pinpoint lumen. Two group sales representative sections from the central tissue are submitted in A1. B. ?Received in formalin labelled with proper patient identification (initials R, R) and portion of left fallopian tube is a 2.4 cm in length fallopian tube segment averaging 0.7 cm in diameter. The serosa is smooth pink-pacheco. Sections show an intact wall and pinpoint lumen. Two group sales representative sections from the central tissue are submitted in B1. Alejandra Valentino 12/06/2015 1:[address] [facility] 12/05/2015 10:5 7 EDT 12/05/2015 10:57 EDT Ronald Palacios MD PATHOLOGY ORDERABLES [facility] [address] [place] [address] documented in this encounter Visit Diagnoses Not on filedocumented in this encounter Care Teams Scrapper Relationship Specialty Start Date End Date Unknown, Provider, PCP - General 09/30/14 12/10/15 Winsome Newsome NP [address] [place] [phone] 09/30/14 documented as of this encounter
--- OUTSIDE RECORDS SUMMARY | 2024-03-19 00:41 | XMS_ITS | Encounter Summary ---
Author Organization [facility] Address [address] [place] [address] Care Team Providers Care 411 Directory Assistance Operator Name Role Phone Unknown, Provider Primary Care Provider Encounter Details Date Type Department Care Team (Late st Contact Info) Description 12/12/2010 Results Only [facility] Laboratory Services - [facility] ([facility] [place] [address] [place], [place] [address] Francoise Murguia PA [address] [place], [place] [phone] Social History Tobacco Use Types Packs/Day Years Used Date Smoking Tobacco: Never Assessed Sex and Gender Information Value Date Recorded Sex Assigned at Not on file Gender Identity Not on file Sexual Orientation Not on file documented as of this encounter Plan of Treatment Not on file documented as of this encounter Procedures Procedure Name Priority Date/Time Associated Diagnosis Comments PAP TEST- RESULT ONLY Routine 12/12/2010 0:00 EDT documented in this encounter Results * PAP TEST- RESULT ONLY (12/12/2010 0:00 EDT) Pathology Report: CYTOPATHOLOGY REPORT ? Reports generated via electronic interface contain original data; ? however they are lacking the format of the original report. ? Caution should be taken when reading/interpreti ng unformatted reports. ? Name: ? SURESH FLORES ? Accession #: ? [id number] ? : ? 1985 (Age: 25) ??F ?Collect Date: ? 12/12/2010 ? Location: ? [facility] ? Receive Date: ? 12/13/2010 ? Provider: FRANCOISE MURGUIA PA ? Copy to: ? Final Report ? SPECIMEN ADEQUACY ? Satisfactory for Evaluation ? - transformation zone component present ? GENERAL CATEGORIZATION ? Negative for Intraepithelial Lesion or Malignancy ? Last Menstural Period: 12/04/2010 ? Previous Gynecologic Pathology: ASC-US: hx ? HPV ? Specimen/Source: ??Pap Test, Endocervix, ThinPrep Imaging System with manual ? evaluation ? Document reviewed and electronically signed by: ? TALA MOUNT MD ? Report ??Date: 12/20/2010 17:56 ? HPV with Pap Test ? Date Ordered: ? 12/20/2010 ? Status: ?? Signed Out ?Date Complete: ? 12/24/2010 ? By: ??System Interface ? Date Reported: ? 12/24/2010 ? Interpretation ? RESULT: Negative for HPV types 16, 18, 31, 33, 35, 39, 45, 51, 52, ? 56, 58, 59, and 68. ? NHPV2 ? Comments ? Document reviewed and electronically signed by: ? System Interface ? Report date: 12/24/2010 ? By the signature above, the attending physician certifies that he/she has ? personally conducted a gross and/or microscopic examination of the described ? specimens and rendered or confirmed the above diagnosis. ? End of Report ? DANILO WHARTON 12/12/2010 12/13/2010 Francoise FRANCIS PATHOLOGY ORDERABLES DAN[facility] WHARTON [address] [place] [address] documented in this encounter Visit Diagnoses Not on filedocumented in this encounter Care Teams 411 Directory Assistance Operator Relationship Specialty Start Date End Date Unknown, Provider, PCP - General 05/21/10 12/17/10 documented as of this encounter
--- OUTSIDE RECORDS SUMMARY | 2024-03-19 00:41 | XMS_ITS | Encounter Summary ---
Author Organization [facility] Address [address] [place] [address] Care Team Providers Care Rent And Miscellaneous Remittance Clerk Name Role Phone Unavailable Primary Care Provider Unavailabl e Encounter Details Date Type Department Care Team (Late st Contact Info) Description 05/16/2010 Results Only [facility] Laboratory Services - [facility] [place] [place] [address] [place], [place] [phone] Francoise Murguia PA [address] [place] [address] Social History Tobacco Use Types Packs/Day Years Used Date Smoking Tobacco: Never Assessed Sex and Gender Information Value Date Recorded Sex Assigned at Not on file Gender Identity Not on file Sexual Orientation Not on file documented as of this encounter Plan of Treatment Not on file documented as of this encounter Procedures Procedure Name Priority Date/Time Associated Diagnosis Comments CYTOPATHOLOGY Routine 05/16/2010 0:00 EST documented in this encounter Results * CYTOPATHOLOGY (05/16/2010 0:00 EST) Pathology Report: CYTOPATHOLOGY REPORT ? Reports generated via electronic interface contain original data; ? however they are lacking the format of the original report. ? Caution should be taken when reading/interpreti ng unformatted reports. ? Name: ? SURESH FLORES ? Accession #: ? [id number] ? : ? 1985 (Age: 24) ??F ?Collect Date: ? 05/16/2010 ? Location: ? [facility] ? Receive Date: ? 05/18/2010 ? Provider: FRANCOISE FRANCIS ? Copy to: ? Final Report ? SPECIMEN ADEQUACY ? Satisfactory for Evaluation ? - transformation zone component present ? GENERAL CATEGORIZATION ? Epithelial Cell Abnormality ? INTERPRETATION ? Squamous Cell Abnormality - Atypical squamous cells, undetermined ? significance (ASC-US). ? EDUCATIONAL NOTES/RECOMMENDATI ONS ? REPLACED BY [facility] recommends following the 2006 Consensus Guidelines for the Management of Women with Abnormal Cervical Cancer Screening Tests (JLGTD, ? 2007;11(4):201-222 ). ??Consensus guidelines are available online at ? www.ASCCP.org. ? Last Menstural Period: 1124/10 ? Specimen/Source: ??Pap Test, Cervix, ThinPrep Imaging System with manual ? evaluation ? Document reviewed and electronically signed by: ? MANDO C RAMÍREZ MD ? Report ??Date: 05/24/2010 18:05 ? HPV with Pap Test ? Date Ordered: ? 05/24/2010 ? Status: ?? Signed Out ?Date Complete: ? 05/30/2010 ? By: ??System Interface ? Date Reported: ? 05/30/2010 ? Interpretation ? RESULT: Positive for one or more of HPV types 16,18,31,33,35,39, 45, ? 51,52,56,58,59, or 68. These high/intermediate risk HPV ? types are associated with dysplasia and some cervical ? cancers. ? Comments ? Document reviewed and electronically signed by: ? System Interface ? Report date: 05/30/2010 ? By the signature above, the attending physician certifies that he/she has ? personally conducted a gross and/or microscopic examination of the described ? specimens and rendered or confirmed the above diagnosis. ? End of Report ? [facility] 05/16/2010 05/18/2010 Francoise FRANCIS PATHOLOGY ORDERABLES [facility] [address] [place] [address] documented in this encounter Visit Diagnoses Not on filedocumented in this encounter
--- OUTSIDE RECORDS SUMMARY | 2024-03-19 00:41 | XMS_ITS | Clinical Summary ---
Author Organization [facility] Address [address] [place] [address] Care Team Providers Care Svp Programmatic Tv Name Role Phone Winsome Menjivar APRON WORKER Unavailable [phone] Winsome Menjivar APRON WORKER Primary Care Provider + Social History Tobacco Use Types Packs/Day Years Used Date Smoking Tobacco: Never Assessed Sex and Gender Information Value Date Recorded Sex Assigned at Not on file Gender Identity Not on file Sexual Orientation Not on file Plan of Treatment Health Maintenance Due Date Last Done Comments Hepatitis C Screen 1985 Hepatitis B Vaccine (1 of 3 - 19+ 3-dose series) 07/11 COVID-19 Vaccine ( season) 2023 Care Teams Svp Programmatic Tv Relationship Specialty Start Date End Date Winsome Menjivar NP [address] [place] [address] PCP - General 12/11/15 Winsome Menjivar NP [address] [place] [phone] 09/30/14
--- OUTSIDE RECORDS SUMMARY | 2024-03-19 00:41 | XMS_ITS | Encounter Summary ---
Author Organization [facility] Address [address] [place] [address] Care Team Providers Care Combination Machine Tender Name Role Phone Unavailable Primary Care Provider Unavailabl e Encounter Details Date Type Department Care Team (Late st Contact Info) Description 11/11/2008 Orders Only [facility] Laboratory Services - [facility] ([facility] [place] [address] [place] [address] Erika Curtis ARNP [address] [place] [address] Social History Tobacco Use Types Packs/Day Years Used Date Smoking Tobacco: Never Assessed Sex and Gender Information Value Date Recorded Sex Assigned at Not on file Gender Identity Not on file Sexual Orientation Not on file documented as of this encounter Plan of Treatment Not on file documented as of this encounter Procedures Procedure Name Priority Date/Time Associated Diagnosis Comments CYTOPATHOLOGY Routine 11/11/2008 0:00 EDT documented in this encounter Results * CYTOPATHOLOGY (11/11/2008 0:00 EDT) Pathology Report: CYTOPATHOLOGY REPORT ? Reports generated via electronic interface contain original data; ? however they are lacking the format of the original report. ? Caution should be taken when reading/interpreti ng unformatted reports. ? Name: ? SURESH FLORES ? Accession #: ? [id number] ? : ? 1985 (Age: 23) ??F ?Collect Date: ? 11/11/2008 ? Location: ? [facility] ? Receive Date: ? 11/15/2008 ? Provider: ?ERIKA RIVER ? Copy to: ? Specimen/Source: ?Pap Test, Cervix/Endocervix, ThinPrep Imaging System ? with manual evaluation ? Last Menstrual Period: ? 6/4/08 ? Hormonal/Contracep tive Status: ? Oral contraceptives ? Other: ? HPVA - HPV testing requested if ASC-US on the current ThinPrep Pap test. ? SPECIMEN ADEQUACY ? Satisfactory for Evaluation ? - transformation zone component present ? GENERAL CATEGORIZATION ? Negative for Intraepithelial Lesion or Malignancy ? Document reviewed and electronically signed by: ? Lynan Babar, CT(ASCP) ? Report Date: ??11/17/2008 14:42 ? End of Report ? DANILO WHARTON 11/11/2008 11/15/2008 Erika RIVER PATHOLOGY ORDERAB LES [facility] [address] [place] [address] documented in this encounter Visit Diagnoses Not on filedocumented in this encounter
--- OUTSIDE RECORDS SUMMARY | 2024-03-19 00:41 | XMS_ITS | Encounter Summary ---
Author Organization [facility] Address [address] [place] [address] Care Team Providers Care Car Dropper Name Role Phone Winsome Menjivar PRODUCT MANAGEMENT INTERN Unavailable [phone] Winsome Menjivar PRODUCT MANAGEMENT INTERN Primary Care Provider + Encounter Details Date Type Department Care Team (Late st Contact Info) Description 07/02/2018 Results Only [facility]- [facility] [phone] Simone Pepe, PRODUCT MANAGEMENT INTERN [address] [place] [phone] Social History Tobacco Use Types Packs/Day Years [...] Diagnosis Comments PAP TEST- RESULT ONLY Routine 07/02/2018 0:00 EST documented in this encounter Results * PAP TEST- RESULT ONLY (07/02/2018 0:00 EST) Pathology Report: CYTOPATHOLOGY REPORT Reports generated via electronic interface contain original data; however they are lacking the format of the original report. Caution should be taken when reading/interpreti ng unformatted reports. Name: ? SURESH GUADALUPE ? Accession #: ? [id number] ? : ? 1985 (Age: 32) ??F ?Collect Date: ? 07/02/2018 ? Location: ? [facility] ? Receive Date: ? 07/03/2018 ? Provider: SIMONE PEPE CRIMPING MACHINE OPERATOR FOR METAL Copy to: ? Final Report SPECIMEN ADEQUACY ? Satisfactory for Evaluation - transformation zone component present GENERAL CATEGORIZATION ? Negative for Intraepithelial Lesion or Malignancy ?? Last Menstrual Period: 06/18/18 Other: Additional clinical information: Z12.4 Z11.51 Specimen/Source: ??Pap Test, Cervix, ThinPrep Imaging System with manual evaluation Document reviewed and electronically signed by: ? BAKARI Cottrell(ASCP) ? Report ??Date: 07/09/2018 10:48 HPV with Pap Test ? Date Ordered: ? 07/09/2018 ? Status: ?? Signed Out ?Date Complete: ? 2018 ? By: ??System Interface ? Date Reported: ? 2018 ? Interpretation RESULT: Negative for HPV. No E6 or E7 mRNA is detected from HPV types 16,18,31,33,35, 39,45,51,52,56,58, 59,66, and 68 by desizing machine operator mediated amplification. Comments Document reviewed and electronically signed by: ? System Interface ? Report date: 2018 By the signature above, the attending physician certifies that he/she has personally conducted a gross and/or microscopic examination of the described specimens and rendered or confirmed the above diagnosis. End of Report [facility] 07/02/2018 07/03/2018 Simone Pepe NP PATHOLOGY ORDERABLES [facility] [address] [place] [address] documented in this encounter Visit Diagnoses Not on filedocumented in this encounter Care Teams Car Dropper Relationship Specialty Start Date End Date Winsome Menjivar NP [address] [place] [address] PCP - General 12/11/15 Winsome Menjivar NP [address] [place] [phone] 09/30/14 documented as of this encounter
--- OUTSIDE RECORDS SUMMARY | 2024-03-19 00:41 | XMS_ITS | Encounter Summary ---
Author Organization [facility] Address [address] [place] [address] Care Team Providers Care Camera Technician Name Role Phone Winsome Menjivar MANAGER INVESTMENT BANKING Unavailable [phone] Winsome Menjivar MANAGER INVESTMENT BANKING Primary Care Provider + Encounter Details Date Type Department Care Team (Late st Contact Info) Description 05/15/2021 Lab Requisition [facility] Pathology & Laboratory Medicine - [address] [address] Outr Resulting Lab, Provider Social History Tobacco Use Types Packs/Day Years Used Date Smoking Tobacco: Never Assessed Sex and Gender Information Value Date Recorded Sex Assigned at Not on file Gender Identity Not on file Sexual Orientation Not on file documented as of this encounter Plan of Treatment Not on file documented as of this encounter Procedures Procedure Name Priority Date/Time Associated Diagnosis Comments ZZCOVID-19 TEST [facility] PCR Today 05/15/2021 10:15 EST COVID-19 TESTING Routine 05/15/2021 10:1 5 EST documented in this encounter Results * COVID-19 TEST [facility] PCR (05/15/2021 10:15 EST) Swab 05/15/2021 10:1 5 EST 05/15/2021 22:02 EST Provider Outr Resulting Lab MICROBIOLOGY - GENERAL ORDERABLES [facility] [address] [place] [address] * (ABNORMAL) COVID-19 TESTING (05/15/2021 10:15 EST) COVID-19 rt-PCR Result Positive(AA ) Negative 05/16/2021 23:35 EST [facility] Comment: This test has not been FDA cleared or approved. This test has been authorized by FDA under an EUA for use by authorized laboratories. This test has been authorized only for detection of nucleic acid from 2019-nCoV, not for any other viruses or pathogens. This test is only authorized for the duration of the declaration that circumstances exist justifying the authorization of emergency use of in vitro diagnostic tests for detection and/or diagnosis of 2019-nCoV under section 564(b)(1) of Act, 21 U.S.C ?? 360bbb-3(b) (1), unless the authorization is terminated or revoked sooner. Performed on the Edgarher Fusion instrument Performing Lab [place] [facility] 05/16/2021 23:35 EST [facility] Swab 05/15/2021 10:1 5 EST 05/15/2021 22:02 EST Provider Outr Resulting Lab MICROBIOLOGY - GENERAL ORDERABLES [facility] [address] [place] [address] documented in this encounter Visit Diagnoses Not on filedocumented in this encounter Additional Health Concerns Infection Onset Date Last Indicated Resolved Time COVID-19 05/15/2021 05/15/2021 06/04/2021 22:1 5 EST documented as of this encounter Care Teams Camera Technician Relationship Specialty Start Date End Date Winsome Menjivar NP [address] [address] PCP - General 12/11/15 Winsome Menjivar NP [address] [place] [phone] 09/30/14 documented as of this encounter
--- OUTSIDE RECORDS SUMMARY | 2024-03-19 00:41 | XMS_ITS | Encounter Summary ---
Author Organization [facility] Address [address] [place] [address] Care Team Providers Care Sat Act Instructor Name Role Phone Winsome Newsome Negrito DRUM SANDER Primary Care Provider + Encounter Details Date Type Department Care Team (Late st Contact Info) Description 03/01/2014 Results Only [facility] [phone] Leslie Rudolph, GAS STOVE SERVICER HELPER [address] [facility],[place] [address] Social History Tobacco Use Types Packs/Day Years [...] Diagnosis Comments PAP TEST- RESULT ONLY Routine 03/01/2014 0:00 EDT documented in this encounter Results * PAP TEST- RESULT ONLY (03/01/2014 0:00 EDT) Pathology Report: CYTOPATHOLOGY REPORT Reports generated via electronic interface contain original data; however they are lacking the format of the original report. Caution should be taken when reading/interpreti ng unformatted reports. Name: ? SURESH FLORES ? Accession #: ? [id number] : ? 1985 (Age: 28) ??F ?Collect Date: ? 03/01/2014 Location: ? [facility] ? Receive Date: ? 03/04/2014 Provider: ?LESLIE RUDOLPH GAS STOVE SERVICER HELPER Copy to: ?WINSOME NEWSOME NP ? Specimen/Source: ?Pap Test, Cervix/Endocervix, ThinPrep Imaging System with manual evaluation Last Menstrual Period: ? Hormonal/Contracep tive Status: ? Intrauterine device: Mirena ? SPECIMEN ADEQUACY ? Satisfactory for Evaluation - transformation zone component present GENERAL CATEGORIZATION ? Negative for Intraepithelial Lesion or Malignancy ? Document reviewed and electronically signed by: ? Virginie Gallegos, SCT(ASCP) ? Report Date: ??03/11/2014 15:27 End of Report [facility] 03/01/2014 03/04/2014 Leslie Rudolph APRN PATHOLOGY ORDERABLES Performing Organization Address City/State/[facility] Co de Phone Number [facility] [address] [place] [address] documented in this encounter Visit Diagnoses Not on filedocumented in this encounter Care Teams Sat Act Instructor Relationship Specialty Start Date End Date Winsome Newsome NP [address] [place] [phone] PCP - General 02/21/12 09/29/14 documented as of this encounter
--- OUTSIDE RECORDS SUMMARY | 2024-03-19 00:41 | XMS_ITS | Encounter Summary ---
Author Organization [facility] Address [address] [place] [address] Care Team Providers Care Environmental Studies Faculty Member Name Role Phone Unavailable Primary Care Provider Unavailabl e Encounter Details Date Type Department Care Team (Latest Contact Info) Description 05/16/2010 10:39 EST - 05/16/2010 10:41 EST Hospital Encounter [facility] - Other [address] [place] [address] Francoise Murguia PA [address] [place] [address] Discharge Disposition: Home or Self Care Social History Tobacco Use Types Packs/Day Years Used Date Smoking Tobacco: Never Assessed Sex and Gender Information Value Date Recorded Sex Assigned at Not on file Gender Identity Not on file Sexual Orientation Not on file documented as of this encounter Discharge Disposition Disposition Code Departure Means Destination Home or Self Care documented in this encounter Plan of Treatment Not on file documented as of this encounter Visit Diagnoses Not on filedocumented in this encounter
--- OUTSIDE RECORDS SUMMARY | 2024-03-19 00:41 | XMS_ITS | Encounter Summary ---
Author Organization [facility] Address [address] [place] [address] Care Team Providers Care Abrasive Mixer Name Role Phone Unavailable Primary Care Provider Unavailabl e Encounter Details Date Type Department Care Team (Late st Contact Info) Description 01/11/2010 Results Only [facility] Services - [facility] ([facility] [address] [place], [place] [id number] Aries Singer, DO [address] [facility] [address] [place] [address] Social History Tobacco Use Types Packs/Day Years Used Date Smoking Tobacco: Never Assessed Sex and Gender Information Value Date Recorded Sex Assigned at Not on file Gender Identity Not on file Sexual Orientation Not on file documented as of this encounter Plan of Treatment Not on file documented as of this encounter Procedures Procedure Name Priority Date/Time Associated Diagnosis Comments SURGICAL PATHOLOGY Routine 01/11/2010 0:00 EDT documented in this encounter Results * SURGICAL PATHOLOGY (01/11/2010 0:00 EDT) Pathology Report: SURGICAL PATHOLOGY REPORT ? Reports generated via electronic interface contain original data; ? however they are lacking the format of the original report. ? Caution should be taken when reading/interpreti ng unformatted reports. ? Name: ? SANDRA, SURESH M ? Accession #: ? [id number] ? : ? 1985 (Age: 24) ??F ? Collect Date: ? 01/11/2010 ? Location: ? [facility] ? Receive Date: ? 01/12/2010 ? Provider: ARIES SINGER DO ? Copy to: JAY BRYANT PA ? Final Pathologic Diagnosis: ? Submitted as pilonidal cyst, excision: ? - ??Chronically inflamed pilonidal sinus/cyst. ? Document reviewed and electronically signed by: ? KLAUDIA J BUTNOR MD ? Report ??Date: 01/16/2010 11:18 ? By the signature above, the attending physician certifies that he/she has ? personally conducted a gross and/or microscopic examination of the described ? specimens and rendered or confirmed the above diagnosis. ? Specimen(s) Received: ? Pilonidal cyst ? Clinical History: ? Pilonidal cyst ? Gross Description: ? Received in formalin labelled Coronado, Suresh M and pilonidal cyst is a 2.5 x 1.0 x 1.0 cm domínguez soft tissue with an attached elliptical fragment of ? partially incised skin that measures 2.5 x 0.7 cm. ??Sectioning reveals a yellow cut surface with a sinus tract in the center of the specimen. ??Manager Fine Dining ?? sections are submitted in one cassette. (Dr. Ulrich)/mpl ? End of Report ? DANILO WHARTON 01/11/2010 01/12/2010 16: 53 EDT Aries Singer DO PATHOLOGY ORDER SAHRA DANILO WHARTON [address] [place] [address] documented in this encounter Visit Diagnoses Not on filedocumented in this encounter
--- OUTSIDE RECORDS SUMMARY | 2024-03-19 00:41 | XMS_ITS | Referral Summary ---
Author Organization [facility] Address [address] [place] [address] Care Team Providers Care Clinical Operations Consultant Name Role Phone Winsome Menjivar DOOR LINER HELPER Unavailable [phone] Winsome Menjivar DOOR LINER HELPER Primary Care Provider + Social History Tobacco Use Types Packs/Day Years Used Date Smoking Tobacco: Never Assessed Sex and Gender Information Value Date Recorded Sex Assigned at Not on file Gender Identity Not on file Sexual Orientation Not on file Plan of Treatment Not on file Care Teams Clinical Operations Consultant Relationship Specialty Start Date End Date Winsome Menjivar NP [address] [place] [address] PCP - General 12/11/15 Winsome Menjivar NP [address] [place] [phone] 09/30/14
--- OUTSIDE RECORDS SUMMARY | 2024-03-19 00:41 | XMS_ITS | Encounter Summary ---
Author Organization [facility] Address [address] [place] [address] Care Team Providers Care Program Support Specialist Name Role Phone Unavailable Primary Care Provider Unavailabl e Encounter Details Date Type Department Care Team (Late st Contact Info) Description 07/04/2006 Results Only [facility] - Map conversion [address] [place] [address] Erika Curtis ARNP [address] [place] [address] Social History Tobacco Use Types Packs/Day Years Used Date Smoking Tobacco: Never Assessed Sex and Gender Information Value Date Recorded Sex Assigned at Not on file Gender Identity Not on file Sexual Orientation Not on file documented as of this encounter Plan of Treatment Not on file documented as of this encounter Procedures Procedure Name Priority Date/Time Associated Diagnosis Comments CYTOPATHOLOGY Routine 07/04/2006 0:00 EST documented in this encounter Results * CYTOPATHOLOGY (07/04/2006 0:00 EST) Pathology Report: CYTOPATHOLOGY REPORT Reports generated via electronic interface contain original data; however they are lacking the format of the original report. Caution should be taken when reading/interpreti ng unformatted reports. Name: ? SURESH FLORES ? Accession #: ? [id number] : ? 1985 (Age: 20) ??F ?Collect Date: ? 07/04/2006 Location: ? [facility] ? Receive Date: ? 07/09/2006 Provider: ?ERIKA RIVER Copy to: ? Specimen/Source: ?ThinPrep Pap Test, Cervix/Endocervix, processed on Runner ThinPrep Imaging System, with manual evaluation Last Menstrual Period: ? 06/20/06 Hormonal/Contracep tive Status: ? Oral contraceptives Other: ? HPVA - HPV testing requested if ASC-US on the current ThinPrep Pap test. ? SPECIMEN ADEQUACY ? Satisfactory for Evaluation - transformation zone component present GENERAL CATEGORIZATION ? Negative for Intraepithelial Lesion or Malignancy ? Document reviewed and electronically signed by: ? BAKARI Ibrahim(ASCP) ? Report Date: ??07/10/2006 13:06 End of Report DANILO WHARTON 07/04/2006 07/09/2006 Erika RIVER PATHOLOGY ORDERAB LES Performing Organization Address City/State/[facility] Co de Phone Number DANILO WHARTON [address] [place] [address] documented in this encounter Visit Diagnoses Not on filedocumented in this encounter
--- OUTSIDE RECORDS SUMMARY | 2024-03-19 00:41 | XMS_ITS | Encounter Summary ---
Author Organization [facility] Address [address] [place] [address] Care Team Providers Care Cable Testers Helper Name Role Phone Francoise Murguia Primary Care Provider [phone] Encounter Details Date Type Department Care Team (Late st Contact Info) Description 02/19/2012 Results Only [facility] Laboratory Services - [facility] [place] [address] [place], [place] [address] Winsome Newsome, RENARD [address] [place] [address] Social History Tobacco Use Types Packs/Day Years [...] Diagnosis Comments PAP TEST- RESULT ONLY Routine 02/19/2012 0:00 EDT documented in this encounter Results * PAP TEST- RESULT ONLY (02/19/2012 0:00 EDT) Pathology Report: CYTOPATHOLOGY REPORT Reports generated via electronic interface contain original data; however they are lacking the format of the original report. Caution should be taken when reading/interpreti ng unformatted reports. Name: ? SURESH FLORES ? Accession #: ? [id number] ? : ? 1985 (Age: 26) ??F ? N #: ? [id number] ?Collect Date: ? 02/19/2012 ? Location: ? [facility] ? Receive Date: ? 02/20/2012 ? Provider: WINSOME NEWSOME LINING INSERTER Copy to: ? Final Report SPECIMEN ADEQUACY ? Unsatisfactory for Evaluation, - insufficient numbers of squamous epithelial cells (less than 10% of expected cellularity) - sample preparation compromised by excessive blood GENERAL CATEGORIZATION ? Specimen processed and examined, but unsatisfactory for evaluation of epithelial abnormality. Recommend repeat Pap test or further follow up, as clinically indicated. ?? Last Menstural Period: 02/19/12 Hormonal/Contracep tive status: Oral contraceptives Previous Gynecologic Pathology: HPV ASC-US Specimen/Source: ??Pap Test, Cervix/Endocervix, ThinPrep Imaging System with manual evaluation Document reviewed and electronically signed by: ? BAKARI Cottrell(ASCP) ? Report ??Date: 03/02/2012 15:42 HPV with Pap Test ? Date Ordered: ? 03/02/2012 ? Status: ?? Signed Out ?Date Complete: ? 03/04/2012 ? By: ??System Interface ? Date Reported: ? 03/04/2012 ? Interpretation RESULT: Negative for HPV. No E6 or E7 mRNA is detected from HPV types 16,18,31,33,35, 39,45,51,52,56,58, 59,66, and 68 by national service officer mediated amplification. This specimen had inadequate cells for cytologic interpretation. Negative results of HPV testing should be interpreted with caution. If clinically indicated, please consider submission of an additional specimen. Comments Document reviewed and electronically signed by: ? System Interface ? Report date: 03/04/2012 By the signature above, the attending physician certifies that he/she has personally conducted a gross and/or microscopic examination of the described specimens and rendered or confirmed the above diagnosis. End of Report [facility] 02/19/2012 02/20/2012 Winsome Newsome LINING INSERTER PATHOLOGY ORDERA [facility] [address] [place] [address] documented in this encounter Visit Diagnoses Not on filedocumented in this encounter Care Teams Cable Testers Helper Relationship Specialty Start Date End Date Francoise Murguia PA [address] [place] [address] PCP - General 04/01/11 02/20/12 documented as of this encounter
--- OUTSIDE RECORDS SUMMARY | 2024-03-19 00:41 | XMS_ITS | Encounter Summary ---
Author Organization [facility] Address [address] [place] [address] Care Team Providers Care Jewelry Racker Name Role Phone Unknown, Provider Primary Care Provider [phone] Encounter Details Date Type Department Care Team (Latest Contact Info) Description 12/12/2010 17:26 EDT - 12/12/2010 17:27 EDT Hospital Encounter [address] [address] Francoise Murguia PA [address] [place] [address] Discharge Disposition: Home or Self Care Social [...] on filedocumented in this encounter Care Teams Jewelry Racker Relationship Specialty Start Date End Date Unknown, Provider, PCP - General 05/21/10 12/17/10 documented as of this encounter
--- OUTSIDE RECORDS SUMMARY | 2024-03-19 00:41 | XMS_ITS | Encounter Summary ---
Author Organization [facility] Address [address] [place] [address] Care Team Providers Care Consumer Loan Manager Name Role Phone Unknown, Provider Primary Care Provider [phone] Encounter Details Date Type Department Care Team (Latest Contact Info) Description 12/12/2010 10:50 EDT - 12/12/2010 10:51 EDT Hospital Encounter [address] [address] Francoise Murguia PA [address] [place] [address] Discharge Disposition: Home or Self Care Social [...] on filedocumented in this encounter Care Teams Consumer Loan Manager Relationship Specialty Start Date End Date Unknown, Provider, PCP - General 05/21/10 12/17/10 documented as of this encounter
--- OUTSIDE RECORDS SUMMARY | 2024-03-19 00:41 | XMS_ITS | Encounter Summary ---
Author Organization [facility] Address [address] [place] [address] Care Team Providers Care Automatic Spooler Operator Name Role Phone Francoise Murguia Primary Care Provider Encounter Details Date Type Department Care Team (Late st Contact Info) Description 02/19/2012 15:21 EDT - 02/19/2012 15:22 EDT Hospital Encounter [address] [address] Winsome Menjivar, RENARD [address] [place] [address] Discharge Disposition: Home or Self Care Social [...] on filedocumented in this encounter Care Teams Automatic Spooler Operator Relationship Specialty Start Date End Date Francoise Murguia PA [address] [place] [address] PCP - General 04/01/11 02/20/12 documented as of this encounter
--- OUTSIDE RECORDS SUMMARY | 2024-03-19 00:41 | XMS_ITS | Encounter Summary ---
Author Organization [facility] Address [address] [place] [address] Care Team Providers Care Real Estate Subagent Name Role Phone Unknown, Provider Primary Care Provider [phone] Winsome Menjivar SOFTWARE QUALITY ENGINEER Unavailable [phone] Encounter Details Date Type Department Care Team (Late st Contact Info) Description 12/05/2015 8:27 EDT - 12/05/2015 8:30 EDT Hospital Encounter [facility] - [address] [address] Ronald Salas MD [address] [place] [address] Discharge Disposition: Home or Self Care Social History Tobacco Use Types Packs/Day Years Used Date Smoking Tobacco: Never Assessed Sex and Gender Information Value Date Recorded Sex Assigned at Not on file Gender Identity Not on file Sexual Orientation Not on file documented as of this encounter Discharge Diagnoses Diagnosis O34.21 Maternal care for scar from previous delivery-O34.21[ICD-10-CM] Z57.0 Occupational exposure to noise-Z57.0[ICD-10-CM] Z30.2 Encounter for sterilization-Z30.2[ICD-10-CM] documented in this encounter Discharge Disposition Disposition Code Departure Means Destination Home or Self Care documented in this encounter Plan of Treatment Not on file documented as of this encounter Visit Diagnoses Not on filedocumented in this encounter Care Teams Real Estate Subagent Relationship Specialty Start Date End Date Unknown, ProviderMD PCP - General 09/30/14 12/10/15 Winsome Menjivar NP [address] [place] [phone] 09/30/14 documented as of this encounter
--- OUTSIDE RECORDS SUMMARY | 2024-03-19 00:41 | XMS_ITS | Encounter Summary ---
Author Organization [facility] Address [address] [place] [address] Care Team Providers Care Sustainable Design Coordinator Name Role Phone Winsome Newsome NP Primary Care Provider + Unknown, Provider Primary Care Provider [phone] Winsome Newsome TRAPEZE ARTIST Unavailable [phone] Encounter Details Date Type Department Care Team (Late st Contact Info) Description 09/28/2014 Results Only [facility] [phone] Leslie Rudolph, PERSONNEL PSYCHOLOGIST [address],[place] [address] Social History Tobacco Use Types Packs/Day Years [...] Diagnosis Comments PAP TEST- RESULT ONLY Routine 09/28/2014 0:00 EDT documented in this encounter Results * PAP TEST- RESULT ONLY (09/28/2014 0:00 EDT) Pathology Report: CYTOPATHOLOGY REPORT Reports generated via electronic interface contain original data; however they are lacking the format of the original report. Caution should be taken when reading/interpreti ng unformatted reports. Name: ? SURESH GUADALUPE ? Accession #: ? [id number] : ? 1985 (Age: 29) ??F ?Collect Date: ? 09/28/2014 Location: ? [facility] ? Receive Date: ? 09/30/2014 Provider: ?LESLIE RUDOLPH PERSONNEL PSYCHOLOGIST Copy to: ?WINSOME NEWSOME TRAPEZE ARTIST ? Specimen/Source: ?Pap Test, Cervix/Endocervix, ThinPrep Imaging System with manual evaluation Last Menstrual Period: ? SPECIMEN ADEQUACY ? Satisfactory for Evaluation - transformation zone component present GENERAL CATEGORIZATION ? Negative for Intraepithelial Lesion or Malignancy ? Document reviewed and electronically signed by: ? BAKARI Gallegos(ASCP) ? Report Date: ??10/07/2014 12:47 End of Report [facility] 09/28/2014 09/30/2014 Leslie Rudolph APRN PATHOLOGY ORDERABLES Performing Organization Address City/State/[facility] Co de Phone Number [facility] [address] [place] [address] documented in this encounter Visit Diagnoses Not on filedocumented in this encounter Care Teams Sustainable Design Coordinator Relationship Specialty Start Date End Date Winsome Newsome NP [address] [place] [address] PCP - General 02/21/12 09/29/14 Unknown, Provider, [address] [place] [address] PCP - General 09/30/14 12/10/15 Winsome Newsome NP [address] [place] [phone] 09/30/14 documented as of this encounter
--- OUTSIDE RECORDS SUMMARY | 2024-03-19 00:41 | XMS_ITS | Encounter Summary ---
Author Organization [facility] Address [address] [place] [address] Care Team Providers Care Workcell Operator Name Role Phone Winsome Newsome TIME CLOCK INSPECTOR Primary Care Provider + Encounter Details Date Type Department Care Team (Late st Contact Info) Description 04/14/2013 Results Only [facility] Laboratory Services - [facility] ([facility] [place] [address] [place], [place] [address] Winsome Newsome, RENARD [address] [place] [address] Social History Tobacco Use Types [...] Diagnosis Comments PAP TEST- RESULT ONLY Routine 04/14/2013 0:00 EST documented in this encounter Results * PAP TEST- RESULT ONLY (04/14/2013 0:00 EST) Pathology Report: CYTOPATHOLOGY REPORT Reports generated via electronic interface contain original data; however they are lacking the format of the original report. Caution should be taken when reading/interpreti ng unformatted reports. Name: ? SURESH FLORES ? Accession #: ? [id number] ? : ? 1985 (Age: 27) ??F ?Collect Date: ? 04/14/2013 ? Location: ? [facility] ? Receive Date: ? 04/16/2013 ? Provider: WINSOME NEWSOME TIME CLOCK INSPECTOR Copy to: ? Final Report SPECIMEN ADEQUACY ? Satisfactory for Evaluation - transformation zone component present GENERAL CATEGORIZATION ? Epithelial Cell Abnormality INTERPRETATION ? Squamous Cell Abnormality - Atypical squamous cells, undetermined significance (ASC-US). Fungal organisms present morphologically consistent with Kristine species. EDUCATIONAL NOTES/RECOMMENDATI ONS ? [facility] recommends following ASCCP's 2012 Updated Consensus Guidelines for the Management of Abnormal Cervical Cancer Screening Tests and Cancer Precursors (JLGTD, 2013; 17(5):S1-S27). ??Consensus guidelines are available online at www.asccp.org. Last Menstrual Period: 01/31/2013 Menstrual/Pregnanc y Status: ?? Specimen/Source: ??Pap Test, Endocervix, ThinPrep Imaging System with manual evaluation Document reviewed and electronically signed by: ? TALA GALINDO MD ? Report ??Date: 04/22/2013 13:04 HPV with Pap Test ? Date Ordered: ? 04/22/2013 ? Status: ?? Signed Out ?Date Complete: ? 04/26/2013 ? By: ??System Interface ? Date Reported: ? 04/26/2013 ? Interpretation RESULT: Positive for high or intermediate risk HPV. E6 OR E7 mRNA from one or more types of HPV types 16,18,31, 33,35,39,45,51,52, 56,58,59,66, and 68 is detected by insulator cutter and former mediated amplification. High and intermediate risk HPV types are associated with most squamous intraepithelial lesions and cervical cancers. Comments Document reviewed and electronically signed by: ? System Interface ? Report date: 04/26/2013 By the signature above, the attending physician certifies that he/she has personally conducted a gross and/or microscopic examination of the described specimens and rendered or confirmed the above diagnosis. End of Report DANILO WHARTON 04/14/2013 04/16/2013 Winsome Newsome TIME CLOCK INSPECTOR PATHOLOGY ORDERA [facility] Organization Address City/State/[facility] Co de Phone Number DANILO WHARTON [address] [place] [address] documented in this encounter Visit Diagnoses Not on filedocumented in this encounter Care Teams Workcell Operator Relationship Specialty Start Date End Date Winsome Newsome NP [address] [place] [phone] PCP - General 02/21/12 09/29/14 documented as of this encounter
--- NOTE | 2024-03-19 07:15 | DI.MAMMO_ITS ---
Exam(s) MAMMO SCREENING EXAM: MAMMO SCREENING CLINICAL HISTORY: screening,z12.39 TECHNIQUE: Bilateral full field digital CC and MLO mammographic images were obtained with 3D tomosyn thesis and utilizing computer aided detection (CAD). COMPARISON: Available for comparison. FINDINGS: Masses/Architectural Distortion: There has been interval increase in size of the nodule in the medial right breast which now measures 1.6 cm compared to 1.0 cm on the prior examination. There are no ar eas of architectural distortion. Microcalcifications: No suspicious pleomorphic-type are seen. Skin Thickening/Nipple Retraction: None. IMPRESSION: 1. Interval increase in size of the nodule in the medial right breast. 2. A limited right breast ultrasound is requested for re-evaluation. BI-RADS Category 0 - Incomplete: Need additional imaging evaluation Breast Density - Category C - Heterogeneously dense Breast density category C or D implies that the patient has dense breast tissue. Dense breast tissue is very common and is not abnormal but dense breast tissue can make it harder to find cancer on a ma mmogram. Also, dense breast tissue may increase their breast cancer risk. This information about the result of the mammogram report was provided to the patient to raise their awareness. Use this report when you speak with the patient about their risks for breast cancer, which includes their family hist ory. At that time, you may recommend for more screening tests (Ultrasound or MRI) as they might be us eful based on their risk. A negative radiographic report should not delay biopsy if a dominant or clinically suspicious mass is present. Up to ten percent of cancers are not identified on mammography. A negative report may reinforce clinical impression. Adenosis and dense breasts may obscure an underlying neoplasm. False positive reports average 6 to 10%. Patient will receive a letter notifying them of these results.
== END 2024-03-19 00:53 ==
LOC: DI 00:33
PROVIDERS: PCP Student in an Organized Health Care Education/Training Program; Visit Provider Student in an Organized Health Care Education/Training Program
DX: Z12.31 Encounter for screening mammogram for malignant neoplasm of breast (principal)
CPT/HCPCS: 77063; 77067

== ENCOUNTER 2024-03-25 02:03 | Outpatient (CLI) | payer MEDICAID, SELFPAY ==
--- NOTE | 2024-03-25 | DI.MAMMO_ITS ---
Exam(s) MG MAMMO SCREEN CALL BACK UNI US BREAST RT COMPLETE EXAM: MG MAMMO SCREEN CALL BACK UNI-RIGHT AND COMPLETE RIGHT BREAST ULTRASOUND CLINICAL HISTORY: Interval increase in size of rt breast nodule. TECHNIQUE: Unilateral right breast spot mammographic images obtained with 3D tomosynthesisand utiliz ing computer aided detection (CAD). . Complete right breast Ultrasound was also performed, including all 4 quadrants, the retroareolar reg ion, and the ipsilateral axilla. COMPARISON: Prior mammograms were reviewed. This additional imaging was performed due to findings described on the recent screening mammogram of 03/19/2024. FINDINGS: DIAGNOSTIC MAMMOGRAM: Additional mammographic views performed todaydoes not dissipate this nodule. We proceeded with ultra sound COMPLETE RIGHT BREAST ULTRASOUND: Ultrasound performed today reveals a 1.6 X 1.2 cm septated cyst at the 1 o'clock position correspondi ng to the finding on the mammogram. At the 8 o'clock position there is a 7 mm microcyst as well as a 4 millimeter microcyst. At the 9 o' clock position there is a septated microcyst measuring 5 x 4 mm. At the 11 o'clock position there is a 3 millimeter x 3 millimeter hemorrhagic microcyst. Also at 11 o'clock position are 2 adjacent 3 m m microcysts. Also another 5 x 4 mm microcyst. Scanning of the ipsilateral axilla reveals no significant adenopathy. IMPRESSION: 1. The recent focal finding on the mammogram corresponds to a 1.6 x 1.2 cm septated cyst 1-2 o'clock position on ultrasound. 2. There are other findings on ultrasound as detailed above, combination of cysts and hemorrhagic cy sts. Appropriate follow-up as discussed by myself with the patient today is repeat right breast mammogram and ultrasound in 6 months. The patient was informed of these findings and recommendations by myself prior to leaving the departm ent today. BI-RADS Category 3 - 6 month - Probably Benign Finding: Recommend follow-up mammography in 6 months Breast Density - Category C - Heterogeneously dense Breast density Category C or D implies that the patient has dense breast tissue. Dense breast tissue can make it harder to find cancer on a mammogram. Dense breast tissue is also associated with an incr eased risk of breast cancer. This information about the result of the mammogram report was provided to the patient to raise their awareness. Use this report when you speak with the patient about their risks for breast cancer, which includes their family history. At that time, you may recommend additional screening tests (Ultrasoun d or MRI) as these tests may add significant information. A negative radiographic report should not delay biopsy if a dominant or clinically suspicious mass is present. Up to ten percent of cancers are not identified on mammography. A negative report may reinforce clinical impression. Adenosis and dense breasts may obscure an underlying neoplasm. False positive reports average 6 to 10%. Patient will receive a letter notifying them of these results.
== END 2024-03-25 02:23 ==
LOC: DI 02:03
PROVIDERS: PCP Student in an Organized Health Care Education/Training Program; Visit Provider Student in an Organized Health Care Education/Training Program
DX: Z12.31 Encounter for screening mammogram for malignant neoplasm of breast (principal); N60.01 Solitary cyst of right breast
CPT/HCPCS: 76642; 77063; 77067

== ENCOUNTER 2024-04-20 02:07 | Outpatient (CLI) | payer MEDICAID, SELFPAY ==
--- NOTE | 2024-04-20 09:30 | DI.MAMMO_ITS ---
Exam(s) US BREAST LT COMPLETE MG MAMMO DIAGNOSTIC UNI EXAM: MG MAMMO DIAGNOSTIC UNI-LEFT AND COMPLETE LEFT BREAST ULTRASOUND. CLINICAL HISTORY: palpable lt lesion, breast pain, tenderness, nodule occurring now. TECHNIQUE: Unilateral LEFT BREAST CC AND MLO mammographic images were obtained with 3D tomosynthesis technique and utilizing computer aided detection (CAD). Also performed additional spot compression 3D view of the left breast COMPLETE LEFT BREAST ULTRASOUND was performed, including all 4 quadrants well as as the axillary harmony on COMPARISON: Prior mammograms were reviewed, the most recent being approximately 1 month ago. Bridget walker, since that time she has developed new marble size painful lump in her left breast approximately 12 o'clock position. However, today she claims that it has significantly decreased in size in the past few days.. FINDINGS: DIAGNOSTIC LEFT BREAST MAMMOGRAM: Fibroglandular tissue pattern is again noted be moderately dense, this somewhat decreasing the sensit ivity of the mammogram for finding hidden underlying lesions. There are no obvious masses evident on mammography. There are no malignant-appearing microcalcificat ion groups. No significant architectural distortion or skin thickening-traction. COMPLETE LEFT BREAST ULTRASOUND: At the 12 o'clock position (which is the area of clinical concern) there are 2 microcysts evident carlos suring 3 and 4 mm. Patient states that this is the exact area which she is concern about. There are no solid lesions at this level. There are no other focal ultrasound findings in all 4 quadrants of the left breast. Scanning of the left axilla is negative for significant adenopathy. IMPRESSION: 1. There 2 small benign microcysts measuring 3 and 4 mm at the 12 o'clock position of the left breast corresponding to her area of clinical concern. Please note that these cysts are probably smaller th an they were a few days ago when she discovered the lump which she describes as marble size but which has decreased in size according to the patient since that time. 2. These microcysts are hidden subjacent to her dense fibroglandular tissue on 3D mammography. There is no radiographic/mammographic evidence of malignancy. Appropriate follow-up is to keep this patient on her yearly mammogram schedule, with earlier imaging if a self detected breast change is noted.. The patient was informed of the findings and follow-up recommendations by myself prior to leaving the department today. BI-RADS Category 2 - Benign Findings Breast Density - Category C - Heterogeneously dense Breast density Category C or D implies that the patient has dense breast tissue. Dense breast tissue can make it harder to find cancer on a mammogram. Dense breast tissue is also associated with an incr eased risk of breast cancer. This information about the result of the mammogram report was provided to the patient to raise their awareness. Use this report when you speak with the patient about their risks for breast cancer, which includes their family history. At that time, you may recommend additional screening tests (Ultrasoun d or MRI) as these tests may add significant information. A negative radiographic report should not delay biopsy if a dominant or clinically suspicious mass is present. Up to ten percent of cancers are not identified on mammography. A negative report may reinforce clinical impression. Adenosis and dense breasts may obscure an underlying neoplasm. False positive reports average 6 to 10%. Patient will receive a letter notifying them of these results.
== END 2024-04-20 02:27 ==
LOC: DI 02:08
PROVIDERS: PCP Student in an Organized Health Care Education/Training Program; Visit Provider Student in an Organized Health Care Education/Training Program
DX: Z12.31 Encounter for screening mammogram for malignant neoplasm of breast (principal); N60.02 Solitary cyst of left breast
CPT/HCPCS: 76642; 77061; 77065; G0279

== ENCOUNTER 2024-09-23 01:25 | Outpatient (CLI) | payer MEDICAID, SELFPAY ==
--- NOTE | 2024-09-23 06:51 | DI.US_ITS ---
Exam(s) MG MAMMO DIAGNOSTIC UNI US BREAST RT COMPLETE EXAM: MG MAMMO DIAGNOSTIC UNI and U/S breast RT complete CLINICAL HISTORY: 6 MO F/U, F/U ABNL MAMMO, RT BREAST MASS, N63.10,R93.89. TECHNIQUE: Craniocaudal and mediolateral oblique Full Field Digital Mammography views of the right b reast with Computer Aided Diagnosis followed by Tomosynthesis and complete right breast ultrasound. All 4 quadrants of the right breast were evaluated sonographically. The retroareolar region and axil la were also interrogated sonographically. COMPARISON: Comparison is made with prior examinations. FINDINGS: Mammography/Tomosynthesis: Masses/Architectural Distortion: There are persistent well-circumscribed nodules in the retroareolar region of the right breast. They appear grossly unchanged. No new masses or areas of architectural distortion are present. Microcalcifictions: No suspicious pleomorphic-type are seen. Skin Thickening/Nipple Retraction: None. Complete right breast US: Echotexture: Normal appearance of the glandular tissue. Shadowing: No suspicious foci. Cyst: Numerous cysts are seen in the right breast. The largest is at the 12 o'clock position 1 cm fr om the nipple and measures 1.9 x 0.8 cm. Solid lesions: None seen. Ductal dilation: None. IMPRESSION: 1. No evidence of malignancy is noted. 2. Unless there is more urgent need, follow-up screening mammography is recommended, as per [employer] guidelines. 3. The findings were discussed with the patient on the date of the examination. BI-RADS Category 2 - Benign Findings Breast Density - Category C - Heterogeneously dense Breast density Category C or D implies that the patient has dense breast tissue. Dense breast tissue can make it harder to find cancer on a mammogram. Dense breast tissue is also associated with an incr eased risk of breast cancer. This information about the result of the mammogram report was provided to the patient to raise their awareness. Use this report when you speak with the patient about their risks for breast cancer, which includes their family history. At that time, you may recommend additional screening tests (Ultrasoun d or MRI) as these tests may add significant information. A negative radiographic report should not delay biopsy if a dominant or clinically suspicious mass is present. Up to ten percent of cancers are not identified on mammography. A negative report may reinforce clinical impression. Adenosis and dense breasts may obscure an underlying neoplasm. False positive reports average 6 to 10%. Patient will receive a letter notifying them of these results.
== END 2024-09-23 01:45 ==
LOC: DI 01:25
PROVIDERS: PCP Nurse Practitioner Family; Visit Provider Student in an Organized Health Care Education/Training Program
DX: Z12.31 Encounter for screening mammogram for malignant neoplasm of breast (principal); R92.8 Other abnormal and inconclusive findings on diagnostic imaging of breast
CPT/HCPCS: 76642; 77061; 77065; G0279

== ENCOUNTER 2024-11-01 03:04 | Outpatient (CLI) | payer MEDICAID, SELFPAY ==
--- NOTE | 2024-11-01 07:30 | DI.MRI_ITS ---
Exam(s) MR LOWER JOINT LT WO EXAM: MR LOWER JOINT LT WO CLINICAL HISTORY: possible meniscal tear,LT KNEE INJURY,KNEE BUCKLING,M25.369,S89.92XA. TECHNIQUE: Multiplanar multisequence MRI was performed. COMPARISON: No exams were available for comparison FINDINGS: BONES: There is no fracture or contusion pattern. JOINTS: There are areas of hyperintense signal seen on the T2 weighted images within the articular ca rtilage. There is also thinning of the articular cartilage particularly over the medial patellar fac et. There is a small amount of fluid within the joint space. TENDONS: Extensor mechanism: Unremarkable. Medial retinaculum: Unremarkable. Lateral retinaculum: Unremarkable. Popliteus: Unremarkable. MUSCLES: Unremarkable. MENISCI: The medial meniscus is unremarkable. There is hyperintense signal seen in the body of the l ateral meniscus consistent with a tear. SOFT TISSUES: Unremarkable. LIGAMENTS: Anterior Cruciate: Unremarkable. Posterior Cruciate: Unremarkable. Medial Collateral:Unremarkable. Lateral Collateral: Unremarkable. OTHER: IMPRESSION: 1. Tear of the body of the lateral meniscus. 2. No evidence of a ligament tear. 3. Chondromalacia of the articular cartilage overlying the patella. DATA REPOSITORY:
== END 2024-11-01 03:24 ==
LOC: DI 03:04
PROVIDERS: PCP Nurse Practitioner Family; Visit Provider Family Medicine
DX: S89.92XA Unspecified injury of left lower leg, initial encounter; X58.XXXA Exposure to other specified factors, initial encounter; M25.562 Pain in left knee
CPT/HCPCS: 73721

== ENCOUNTER 2024-11-03 10:33 | Outpatient (CLI) | payer MEDICAID, SELFPAY ==
--- NOTE | 2024-11-03 08:45 | DI.RAD_ITS ---
Exam(s) XR KNEE LT 2V AP,LAT EXAM: XR KNEE LT 2V AP,LAT CLINICAL HISTORY: LEFT KNEE PAIN. TECHNIQUE: 2D digital imaging was performed of the left knee. Two images were obtained. AP and lat eral views were obtained. COMPARISON: MR MR LOWER JOINT LT WO from 11/01/2024 FINDINGS: BONES: No acute fracture is present. No bony destructive lesion is seen. There is an enthesophyte at the superior patella. JOINTS: The knee is normally aligned. No joint effusion is seen. No loose body. SOFT TISSUE: Normal. IMPRESSION: No acute abnormality. DATA REPOSITORY: RADIATION DOSE DELIVERED:
== END 2024-11-03 10:34 | disposition home or self-care (01) ==
LOC: DIORS 10:34
PROVIDERS: PCP Nurse Practitioner Family; Visit Provider Student in an Organized Health Care Education/Training Program
DX: S83.282A Other tear of lateral meniscus, current injury, left knee, initial encounter (principal)
CPT/HCPCS: 73560

== ENCOUNTER 2024-11-26 05:47 | Day surgery (SDC) | payer MEDICAID, SELFPAY ==
[2024-11-26] VITALS (29 sets, daily range): BP systolic 109–129; BP diastolic 35–90; PULSE 50–91; RESP 10–19; TEMP 36.3–36.6; O2SAT 91–100; BMI 29.8
[2024-11-26] MEDS: Lactated Ringers 1,000 ML 30 ML IV (06:45)
--- NOTE | 2024-11-26 07:07 | PDOC.DSDIS_ITS ---
Date of service: 11/26/24 Discharge Plan Disposition Patient Disposition: Home Condition: Stable Discharge Details Attending Provider: Danny Osman Primary Care Provider: Leila Hunt Home Meds and New Rx's Prescriptions: New naproxen 250 mg tablet 250 - 500 mg PO BID PRN (Reason: moderate pain and swelling) Qty: 40 0RF oxycodone 5 mg tablet 5 - 10 mg PO .q4-6h MDD 30 mg PRN (Reason: severe pain) Qty: 18 0RF aspirin 81 mg capsule 81 mg PO DAILY 14 Days Qty: 14 0RF Continued valacyclovir 500 mg tablet 500 mg PO QDAY Qty: 90 1RF lidocaine HCl-hydrocortison ac 3 %-2.5 % (7 gram) gel 1 applic FL BID Qty: 7 0RF Rx Instructions: no longer than 7 day use CBD 25 mg capsule See Rx Instructions .ROUTE .QD Rx Instructions: 25 mg .QD; for anxiety turmeric root extract 500 mg capsule 500 mg PO DAILY cholecalciferol (vitamin D3) 50 mcg (2,000 unit) capsule 50 mcg PO DAILY Qty: 90 3RF Rx Instructions: Taking OTC lorazepam [Ativan] 0.5 mg tablet 0.5 mg PO DAILY MDD 0.5mg PRN (Reason: anxiety episode/panic) Qty: 10 0RF Rx Instructions: Take sparingly, as discussed. Paper Rx. ((MDD 0.5mg)) lorazepam 1 mg tablet 1 mg PO DAILY PRN (Reason: anxiety) Qty: 2 0RF sertraline 25 mg tablet 50 mg PO DAILY Qty: 60 2RF clonidine HCl 0.1 mg tablet Discontinued ibuprofen 600 mg tablet 600 mg PO Q4H PRN Rx Instructions: take a day prior to cycle to to help reduce inflammatory response w menstrual cycle Discharge Instructions Additional Instructions: Surgery: Left knee arthroscopy with partial lateral meniscectomy (discoid lateral meniscus tear), patellar chondroplasty, and synovectomy 11/26/24 Activity: Recommend ice and elevation to minimize swelling and discomfort. We ightbearing as tolerated. Advance range of motion as comfort allows. Please restore full knee extension, flexion to 90 degrees, encourage quadriceps isometrics prior to first follow-up visit. No knee brace or crutches needed as soon as comfortable. Avoid sports, pivoting, and squatting for 6-8 weeks. A physical therapy prescription will be sent electronically to start in about 3 weeks. Prescriptions: Aspirin 81 mg take 1 daily to prevent a blood clot for 14 days, starting tomorrow Naproxen 250 mg take 1-2 every 12 hours with a meal as needed for moderate pain Oxycodone 5 mg take 1-2 every 4-6 hours as needed for severe pain You may use [id number]-bsyaitz Tylenol (acetaminophen) as needed for mild pain. These pain medications may be taken all at once or in different combinations as needed. Also, recommend Colace (docusate) as a stool softener as surgery and pain medicine cause constipation. You may try iqua-wga-znscyvm diphenhydramine (Benadryl) 25-50 mg nightly as a sleep aid Dressings: Leave dressing in place for 3 days. May then remove and leave open to air or cover incisions with Band-Aids. Leave the sticky Steri-Strips in place until they fall off or remove them after you shower. May shower after 5 days. Follow-up: 10-[address] Osman You may take off the leg compression stockings this evening at home. You may also leave them on a few days longer if you have a history of leg swelling or edema. Let us know right away if you develop any redness, drainage, fevers, chest pain, or trouble breathing. Do not drink alcohol or drive for at least 24 hours after anesthesia. Please call the office during business hours with any questions or concerns. Discharge Orders Discharge Orders: Discharge Order (Routine); Ordered 11/26/24 Ordered By: Elenita Camp DS: Diagnosis Discharge Diagnosis (1) Acute lateral meniscus tear of left knee: Status: Acute (2) Chondromalacia of patella, left: Status: Acute (3) Hoffa disease of left knee: Status: Acute
--- NOTE | 2024-11-26 07:13 | ANES.PREOP_ITS ---
General Info Date of Service Date Performed: 11/26/24 Height: 5 ft 7 in Weight: 86.5 kg Body Mass Index (BMI): 29.8 Surgical Procedure: Operation Date: 11/26/24 07:40 Proposed Procedure Side Surgeon p Knee Arthroscopy w Lateral Meniscus Repair and Bone Marrow Stimulation vs Partial Lateral Meniscectomy, Patellar Chondroplasty Left Danny Osman MD Meds Allergies and Home Medications Allergies Allergy/AdvReac Type Severity Reaction Status Date / Time ethinyl estradiol (From Stacey) Allergy Intermediate Other (See Verified 11/26/24 06:30 Comment) norgestimate (From Stacey) Allergy Intermediate Other (See Verified 11/26/24 06:30 Comment) sulfamethoxazole (From AdvReac blisters Verified 11/26/24 06:30 Bactrim) on inner lips trimethoprim (From Bactrim) AdvReac blisters Verified 11/26/24 06:30 on inner lips Home Medication ?Medication ?Instructions ?Recorded CBD See Rx Instructions .Route . QD 03/17/20 turmeric root extract 500 mg 500 mg PO DAILY 03/05/22 capsule ibuprofen 600 mg tablet 600 mg PO Q4H PRN 02/27/23 valacyclovir 500 mg tablet 500 mg PO QDAY suppression HSV #90 06/09/24 tabs lidocaine 3 %-hydrocortisone 2.5 % 1 applic VA BID #7 grams 07/28/24 (7 gram) rectal gel cholecalciferol (vitamin D3) 50 50 mcg PO DAILY #90 ca ps 09/21/24 mcg (2,000 unit) capsule lorazepam 0.5 mg tablet (Ativan) 0.5 mg PO DAILY PRN a nxiety 09/21/24 episode/panic #10 tabs lorazepam 1 mg tablet 1 mg PO DAILY PRN anxiety #2 tabs 10/22/24 sertraline 25 mg tablet 50 mg (2 x 25 mg) PO DAILY # 60 tabs 11/19/24 clonidine HCl 0.1 mg tablet mg 11/26/24 Current Visit Medications: Current Medications Generic Name Dose Route Start Last Admin Trade Name Freq PRN Reason Stop Dose Admin Ringer's Solution 1,000 mls @ 30 mls/hr 11/26/24 06:00 11/26/24 06:45 IV 11/26/24 23:59 30 mls/hr INFUSION GALI Administration Cefazolin Sodium/Dextrose 2 gm in 50 mls @ 100 mls/hr 11/26/24 06:00 Ancef Duplex IVPB 11/26/24 23:59 PREOP GALI Tranexamic Acid/Sodium Chloride 1,000 mg in 100 mls @ 600 mls/hr 11/26/24 06:00 IVPB 11/26/24 23:59 PREOP GALI IV Miscellaneous Supplies 1 each 11/26/24 06:00 Iv Access IV 11/26/24 23:59 DIRECTED GALI Oxycodone HCl 0 mg 11/26/24 07:07 Oxycodone 5 Mg Tab PO 12/26/24 07:06 Q3H PRN PRN Pain Sodium Chloride 0 ml 11/26/24 06:00 Normal Saline Flush 10 Ml Syr IV 11/26/24 23:59 PRN PRN Sodium Chloride 0 ml 11/26/24 06:00 Normal Saline 10 Ml Vial IJ 11/26/24 23:59 DIRECTED PRN Sterile Water 0 ml 11/26/24 06:00 Water,Injection,Sterile 10 Ml Vial IJ 11/26/24 23:59 DIRECTED PRN PFSH Active Problems Active Problems: Problem Status Onset Code Chondromalacia of patella, left Acute M22.42 Acute lateral meniscus tear of left knee Acute S83.282A Left knee injury Acute S89.92XA Knee buckling Acute M25.369 Preventative health care Acute Z00.00 Acute hemorrhoid Acute K64.9 Mass of right breast on mammogram Acute N63.10 Mass of left breast Acute N63.20 Apnea, transient Acute R06.81 Sleep apnea Acute G47.30 Pre-menstrual mood disorder Chronic F32.81 Menorrhagia Acute N92.0 Hypovitaminosis D Acute E55.9 Vestibular migraine Acute G43.809 Balance disorder Acute R26.89 Anxiety Chronic F41.9 Medical History Medical History Family history of breast cancer Pt asking; I agree (request cost); Mat aunt .. non-risk per guidelines, so Mammo planned for 40 yo. Abdominal wall bulge per US, [facility] (12/2021). No action per [facility] S[facility].. Discoloration of skin Episodic, 2' pressure/irritation (i.e. belt-line) BPV (benign positional vertigo) Possible Dx .. [ ] PT Appreciated Clinical xerostomia Inner lip, angular cheilitis ... 2' invisilign? other? Abnormal auditory perception per 03/02/21 [facility] note Abnormal laboratory test Self-tested w/ [facility] ... showed low cortisol, WNL TSH, WNL free testosterone .. Does she need these re-tested @ [place]? UTI (urinary tract infection) near sepsis 2' R bacteria .. IVF/Rocephin @ urgent care .. recovering well, 02/22/21. 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 Est @ T4-T5, paraspinal rectangular region .. possible 2' epidural during delivery years ago (?) History of ganglion cyst Left wrist, @ radius per pt report. Resolved with use of splint, years ago. Left wrist pain Presume ganglion cyst returned (had responded to wrist splint years ago). Abnormal menses Acute notable nipple pain associated pre-menses in March 2020; Spotting in between menses Mar/Apr making for near 4 week period. Left shoulder pain [facility] PT Referral: Appreciate evaluation of left shoulder pain .. x 1 month, getting worse rather than better. Very specific motion brings on severe pain; otherwise, almost WNL. Possible tear, tendonitis? Bursa involvement? Appreciate ID and recomm for Ortho, PRN. Thank you. Coated tongue Mild acid reflux 10/18/[address] James Chronic rhinitis Hypertrophy of inferior nasal turbinate Family history of diabetes mellitus (DM) Right anterior knee pain Hx knee pain/injury; recent overuse injury (boot camp knee bend) Congenital flat foot Numbness Mid back x 5 yrs (seen by neuro; no acute findings; no serious path ID) HSV (herpes simplex virus) infection Episodic, with good response to valacyclovir Surgical History Surgical History Hx of hernia repair H/O umbilical hernia repair repair by [facility]-Nuclear Medicine Pet Ct Technologist at time of RC/S. Ligation of fallopian tube section x2 Tobacco Smoking/Tobacco Use Status: Never Passive smoking exposure: No Alcohol Alcohol Intake: current Alcohol intake frequency: holidays/special occasions only Substance Use Substance use: Never Substance use type: does not use Vital Signs and Lab Results Vital Signs Most Recent Vital Signs in EMR: Most Recent Vital Signs Temp Pulse Resp BP Pulse Ox 36.5 C 91 H 14 113/76 100 11/26/24 06:05 11/26/24 06:05 11/26/24 06:05 11/26/24 06:05 11/26/24 06:05 Point of Care Results Point of Care Results: POC- Test(urine) Negative 11/26/24 06:43 Anesthesia Assessment and Plan Anesthesia History Personal History: PONV Family History: No Family History of Anesthesia Complications Exercise Tolerance Exercise Tolerance: Metabolic Equivalents>4 Pertinent Negatives Pertinent Negatives: No Symptoms of GERD, No Major Cardiovascular Symptoms or Complaints, No Major Pulmonary Symptoms or Complaints and No History of CVA/TIA Cardiac & Pulmonary Exam Cardiac Exam: Normal S1/S2 Heart Sounds Pulmonary Exam: Clear Bilateral Breath Sounds Implantable Cardiac Device Does patient have a Pacemaker or an ICD?: No Airway Exam Known Difficult Airway: No Mallampati Class: 2 Mouth Opening: Normal (> 3cm) Thyromental Distance: Greater than 3 cm Neck Range of Motion: Full ROM Neck Circumference: Normal Teeth Condition: Normal Dentition ASA Classification ASA Score: ASA 2 Emergency Case?: No NPO Status NPO Status: NPO Clears >2 hours, Solids >8 hours Status Status: Negative HCG Anesthesia Plan Resuscitation Status: Full Code Anesthesia Technique: General Anesthesia Airway Planned: LMA Monitors Used: Standard Monitors Preoperative Comments:: Innocent murmur since childhood
[2024-11-26] MEDS: ceFAZolin 2 GM/50 ML BAG IVPB (07:26)
--- NOTE | 2024-11-26 07:30 | ROE_ITS ---
Operative Note Operative Note PRE-OP DIAGNOSIS: Left knee 1. Lateral meniscus tear 2. Chondromalacia patella POST-OP DIAGNOSIS: same Left knee 1. 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 Chondromalacia patella 3. Anterior, intercondylar, and patellofemoral synovitis 4. Medial plical band PROCEDURE: Left knee 1. Partial lateral meniscectomy, CPT #94402 2. Chondroplasty, CPT #08102: Undersurface patella 3. Greater than 2 compartment synovectomy, CPT #17901: Patellofemoral, anterior, intercondylar, and medial plica excision. SURGEON: Danny Osman CLINICAL ADMINISTRATOR: Elenita Camp ANESTHESIA TYPE: Local By Surgeon and General LMA/ETT Refer to Anesthesia Record ESTIMATED BLOOD LOSS: 5 PATHOLOGY: none sent TOURNIQUET TIME: 0 Patient was transported to: PACU Patient's condition: stable Indications: Please see complete medical record for details. Findings: Exam under anesthesia: Full range of motion, no instability Arthroscopic findings: Significant global synovitis. Engaging patellofemoral synovitis. Abundant anterior fat pad synovitis and intercondylar synovitis. Large broad medial plical band. Moderately significant large area medial patellar facet chondromalacia. Intact medial meniscus with mild medial compartment narrowing. Intact ACL. Complex lateral meniscus tear likely resulting from a redundant discoid meniscus pathology. Mild lateral chondromalacia. Procedure Description: In the operating room, general anesthesia was induced. The patient was positioned supine on the operating room table. All bony prominences were well- padded. Preoperative antibiotics were administered. The knee was prepped and draped in the usual sterile fashion. The correct patient, procedure, and side of the procedure were all verified prior to incision. Exam under anesthesia was performed. 10 cc of 0.25% bupivacaine containing epinephrine was infiltrated about the planned anteromedial and anterolateral knee arthroscopy portals. An additional 10 cc, 20 cc total, was infiltrated about the medial and lateral joint lines. The portals were established and a complete diagnostic arthroscopy was performed with relevant findings detailed above. The mechanical shaver was used to remove pathologic synovium from the patellofemoral, anterior, and intercondylar areas. The radiofrequency ablator was used as well and to establish hemostasis. The radiofrequency ablator was used to resect a medial plical band and the shaver to remove plical tissue to a normal capsular margin. In extension, the undersurface patella was localized mobilized manually and the torpedo shaver used to smooth a large irregular undersurface medial facet area o f cartilage fraying fibrillations and some small flaps to a more regular smooth margin and this broad area. In the [id number] position, using a combination of hand instruments including meniscal biters and a power shaver and working through the anteromedial and anterolateral portals the lateral meniscus was debrided of redundant discoid tissue and all white to white-red zone torn tissue to a stable margin. Care was taken to remove abnormal thickened discoid tissue while still working to preserve as much red-white and capsular meniscus tissue was possible, which involved including thickened abnormal remnant peripheral discoid tissue. The meniscal remnant was probed and found to have a stable margin, stable root, and no other tears The knee was copiously irrigated with arthroscopic fluid until there was a clear effluent before being drained of all fluid. The anteromedial and anterolateral portals were closed in 3-0 Monocryl in a buried interrupted fashion. Mastisol, Steri-Strips, and 4 x 4 gauze were applied over the incisions. The knee was then wrapped gently with an RIGO comressive bandage. The patient awoke from anesthesia without complication and was transferred to [facility] recovery room in a stable condition. Date of Procedure: 11/26/24
[2024-11-26] MEDS: TRANEXAMIC ACID/SOD. CHL. 1,000 MG/100 ML BAG 600 MG IVPB (07:35)
[2024-11-26] MEDS: Bupivacaine 0.25% Pres-Free W/EPI 30 ML VIAL (08:00)
[2024-11-26] MEDS: EPINEPHrine 10 MG/10 ML ML (08:00)
[2024-11-26] MEDS: fentaNYL 100 MCG/2 ML VIAL IVP ×4 (09:00→09:34)
[2024-11-26] MEDS: ACETAMINOPHEN 1,000 MG/100 ML BAG 400 MG IVPB (09:03)
--- NOTE | 2024-11-26 11:02 | W.ANESPOSTOP ---
Postoperative Evaluation Date, Time and Location Date Performed: 11/26/24 Time Performed: 11:03 Patient Location: Day Surgery Unit Vital Signs Most Recent Imported Vital Signs: Most Recent Vital Signs Temp Pulse Resp BP Pulse Ox 36.3 C L 62 16 116/81 100 11/26/24 09:52 11/26/24 09:52 11/26/24 09:52 11/26/24 09:52 11/26/24 09:52 Pain Score Most Recent Pain Score: Most Recent Pain Score Pain Level 4 11/26/24 09:46 Assessment Mental Status: Awake (Alert & Oriented to Patient Baseline) Airway and Respiratory Function: Patent airway with normal (patient baseline) respiratory exam Cardiovascular Function: Hemodynamically Stable Hydration Status: Adequately Hydrated Nausea & Vomiting: No Nausea or Vomiting Pain: Pain is tolerable per patient Peripheral Nerve Block: Patient did not receive a nerve block
== END 2024-11-26 11:20 | disposition home or self-care (01) ==
PROVIDERS: PCP Nurse Practitioner Family; Visit Provider Student in an Organized Health Care Education/Training Program
PROC: (CPT 29876; principal; 2024-11-26 07:30)
DX: S83.282A Other tear of lateral meniscus, current injury, left knee, initial encounter (principal); X58.XXXA Exposure to other specified factors, initial encounter; M22.42 Chondromalacia patellae, left knee; E88.89 Other specified metabolic disorders; M67.52 Plica syndrome, left knee; M22.2X2 Patellofemoral disorders, left knee
CPT/HCPCS: 29876; 29881; 81025; J0131; J0690; J1100; J1885; J2003; J2250; J2405; J2704; J3010

== ENCOUNTER 2025-02-02 11:09 | Outpatient (CLI) | payer MEDICAID, SELFPAY ==
--- NOTE | 2025-02-02 08:45 | DI.RAD_ITS ---
Exam(s) XR KNEE RT 2V AP,LAT EXAM: XR KNEE RT 2V AP,LAT CLINICAL HISTORY: RIGHT KNEE PAIN. TECHNIQUE: 2D digital imaging was performed of the right knee. Two views obtained. AP and lateral views were obtained. COMPARISON: There are no priors for comparison. FINDINGS: BONES: No acute fracture is present. No bony destructive lesion is seen. There is a small enthesophyte at the superior patella. JOINTS: The knee is normally aligned. No joint effusion is seen. SOFT TISSUE: Normal. IMPRESSION: There is no acute abnormality. If there is concern for internal derangement, an MRI should be considered for further evaluation. DATA REPOSITORY: RADIATION DOSE DELIVERED:
== END 2025-02-02 11:10 | disposition home or self-care (01) ==
LOC: DIORS 11:09
PROVIDERS: PCP Nurse Practitioner Family; Visit Provider Student in an Organized Health Care Education/Training Program
DX: M25.561 Pain in right knee (principal)
CPT/HCPCS: 73560

== ENCOUNTER 2025-02-23 03:36 | Outpatient (CLI) | payer MEDICAID, SELFPAY ==
--- NOTE | 2025-02-23 05:45 | DI.MRI_ITS ---
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 TECHNIQUE: Multiplanar multisequence MRI was performed. COMPARISON: CR XR KNEE RT 2V AP,LAT from 02/02/2025 FINDINGS: BONES: There is no fracture or contusion pattern. JOINTS: There is thinning of the articular cartilage overlying the medial patellar facet. The articular cartilage is otherwise well maintained. No effusion is present. TENDONS: Extensor mechanism: Unremarkable. Medial retinaculum: Unremarkable. Lateral retinaculum: Unremarkable. Popliteus: Unremarkable. MUSCLES: Unremarkable. MENISCI: The medial meniscus is unremarkable. The lateral meniscus is unremarkable. SOFT TISSUES: Unremarkable. LIGAMENTS: Anterior Cruciate: Unremarkable. Posterior Cruciate: Unremarkable. Medial Collateral:Unremarkable. Lateral Collateral: Unremarkable. OTHER: IMPRESSION: 1. There is no acute abnormality. 2. There is no evidence of a meniscal or ligament tear. 3. Chondromalacia involving the medial patellar facet. DATA REPOSITORY:
== END 2025-02-23 03:56 ==
LOC: DI 03:36
PROVIDERS: PCP Nurse Practitioner Family; Visit Provider Student in an Organized Health Care Education/Training Program
DX: Q68.6 Discoid meniscus (principal); M22.41 Chondromalacia patellae, right knee
CPT/HCPCS: 73721